=== PATIENT | male | born 1955 | race Hispanic/Latino ===

== ENCOUNTER 2017-06-07 07:26 | Emergency (ER) | payer MEDICAID, OTHER, SELFPAY ==
--- NOTE | 2017-06-07 07:45 | C.PDOC ---
History Of Present Illness Patient is a 61 year old male presents to Emergency Department for evaluation of left sided toothache, and facial swelling since yesterday. Otherwise, patient denies any fever, chills, nausea, vomiting, difficulty swallowing, or any other associated symptoms at this time. Time Seen by Provider: 06/07/17 07:31 History Per: Patient History/Exam Limitations: no limitations Onset/Duration Of Symptoms: Days (1) Current Symptoms Are (Timing): Still Present Recent travel outside of the [place]: No Additional History Per: Patient Past Medical History Reviewed: Historical Data, Nursing Documentation, Vital Signs Vital Signs: Last Vital Signs Temp 98.4 F 06/07/17 07:33 Pulse 101 H 06/07/17 07:33 Resp 18 06/07/17 07:33 BP 107/79 06/07/17 07:33 Pulse Ox 95 06/07/17 07:55 - Medical History PMH: HTN (no meds) - [facility] Procedures ALCOHOL DETOXIFICATION (04/18/13) Family History: States: Unknown Family Hx - Social History Hx Tobacco Use: No Hx Alcohol Use: No Hx Substance Use: No - Immunization History Hx Tetanus Toxoid Vaccination: No Hx Influenza Vaccination: No Hx Pneumococcal Vaccination: No Review Of Systems Except As Marked, All Systems Reviewed And Found Negative. Constitutional: Negative for: Fever, Chills ENT: Positive for: Mouth Pain (left side dental pain, and facial swelling). Negative for: Throat Pain Respiratory: Negative for: Shortness of Breath Gastrointestinal: Negative for: Nausea, Vomiting Physical Exam - Physical Exam Appears: Non-toxic, No Acute Distress Skin: Normal Color, Warm, Dry, No Rash Head: Atraumatic, Normacephalic, Swelling (mild facial edema over the left maxilla) Eye(s): bilateral: Normal Inspection Nose: Normal Oral Mucosa: Moist, No Drooling, No Trismus Tongue: Normal Appearing, No Swelling Lips: Normal Appearing, No Swelling Teeth: No Normal Dentition (poor dentition), Caries Gingiva: Normal Appearing, No Erythema, No Swelling, No Abscess Throat: Normal, No Erythema, No Exudate, No Drooling, Other (Uvula midline, normal phonation) Neck: Normal ROM, Supple Chest: Symmetrical Cardiovascular: Rhythm Regular Respiratory: No Accessory Muscle Use Extremity: Bilateral: Atraumatic, Normal ROM Neurological/Psych: Oriented x3, Normal Speech ED Course And Treatment O2 Sat by Pulse Oximetry: 95 (on RA) Pulse Ox Interpretation: Normal Disposition - Disposition Referrals: [facility] at [facility] [Outside] Disposition: HOME/ ROUTINE Disposition Time: 07:44 Condition: GOOD Additional Instructions: Please follow up with a dentist as soon as possible. Return to the ER for any worsening symptoms or if you are not improved in 48 hours. Prescriptions: Penicillin VK [Penicillin VK Tab] 500 mg PO Q6H #80 tab Instructions: Toothache (ED) Forms: General Discharge Instructions, [facility] (Djiboutian) - Clinical Impression Clinical Impression: Dental infection - Scribe Statement The provider has reviewed the documentation as recorded by the Scribe Alhaji Lee All medical record entries made by the Scribe were at my direction and personally dictated by me. I have reviewed the chart and agree that the record accurately reflects my personal performance of the history, physical exam, medical decision making, and the department course for this patient. I have also personally directed, reviewed, and agree with the discharge instructions and disposition.
[2017-06-07 07:47] VITALS: BP 107/79; PULSE 101; RESP 18; TEMP 98.4; O2SAT 95; BMI 26.6
== END 2017-06-07 07:57 | disposition home or self-care (01) ==
LOC: C.ER 07:26
DX: K04.7 Periapical abscess without sinus (principal)

== ENCOUNTER 2017-08-17 15:51 | Emergency (ER) | payer MEDICAID ==
[2017-08-17 15:51] VITALS: BMI 26.6
[2017-08-17 16:07] VITALS: BP 153/99; PULSE 78; RESP 18; TEMP 97.8; O2SAT 98
== END 2017-08-17 16:38 | disposition left against medical advice (07) ==
LOC: C.ER 15:51
DX: Z02.89 Encounter for other administrative examinations (principal); Z00.00 Encounter for general adult medical examination without abnormal findings

== ENCOUNTER 2017-08-19 06:26 | Emergency (ER) | payer MEDICAID ==
[2017-08-19 06:26] VITALS: BMI 26.6
[2017-08-19 06:34] VITALS: PULSE 74
--- NOTE | 2017-08-19 06:47 | C.PDOC ---
History Of Present Illness 61 y/o male with a hx of chronic alcohol abuse since age 16, comes in for detox from alcohol. Patient admits last use was today. Patient reports mild tremors. Denies SI, HI, or any other complaints. Time Seen by Provider: 08/19/17 06:50 Chief Complaint (Nursing): Substance Abuse History Per: Patient History/Exam Limitations: no limitations Onset/Duration Of Symptoms: Hrs Current Symptoms Are (Timing): Still Present Suicide/Self Injury Attempted (Context): None Modifying Factor(s): Alcohol Severity: Mild Associated Symptoms: denies: Suicidal Thoughts, Suicidal Plan Involuntary Hold By: None Recent travel outside of the [place]: No Additional History Per: Patient Past Medical History Reviewed: Historical Data, Nursing Documentation, Vital Signs Vital Signs: Last Vital Signs Temp 98.3 F 08/19/17 06:32 Pulse 74 08/19/17 06:32 Resp 16 08/19/17 06:32 BP 156/98 H 08/19/17 06:32 Pulse Ox 99 08/19/17 06:47 - Medical History PMH: HTN (no meds) Denies: Diabetes, Hepatitis, HIV, Seizures, Sexually Transmitted Disease - [facility] Procedures ALCOHOL DETOXIFICATION (04/18/13) Family History: States: Unknown Family Hx - Social History Hx Tobacco Use: No Hx Alcohol Use: No Hx Substance Use: No - Immunization History Hx Tetanus Toxoid Vaccination: No Hx Influenza Vaccination: No Hx Pneumococcal Vaccination: No Review Of Systems Except As Marked, All Systems Reviewed And Found Negative. Constitutional: Positive for: Other (Acute alcohol intoxication) Neurological: Positive for: Other (Tremors) Psych: Negative for: Suicidal ideation, Other (HI) Physical Exam - Physical Exam Appears: Non-toxic, No Acute Distress Skin: Warm, Dry Head: Atraumatic, Normacephalic Eye(s): bilateral: Normal Inspection Oral Mucosa: Moist Chest: Symmetrical Cardiovascular: Rhythm Regular, No Murmur Respiratory: Normal Breath Sounds, No Rales, No Rhonchi, No Wheezing Gastrointestinal/Abdominal: Soft, No Tenderness Neurological/Psych: Oriented x3, Other (No tremors or focal deficits) ED Course And Treatment O2 Sat by Pulse Oximetry: 99 (RA) Pulse Ox Interpretation: Normal Medical Decision Making Medical Decision Making: Plans: * [facility] Crisis was notified and will talk to patient. No detox beds available. Patient will be discharge and given a list of centers to be prescreened for detox. Disposition Counseled Patient/Family Regarding: Diagnosis - Disposition Referrals: [facility] at [facility] [Outside] Disposition Time: 06:46 Condition: STABLE Instructions: Alcohol Use Disorder (ED) Forms: [facility] (Stateless) - POA Present On Arrival: None - Clinical Impression Clinical Impression: Alcohol abuse - Scribe Statement The provider has reviewed the documentation as recorded by the Scribe Vlad wilburn All medical record entries made by the Abdirashidibe were at my direction and personally dictated by me. I have reviewed the chart and agree that the record accurately reflects my personal performance of the history, physical exam, medical decision making, and the department course for this patient. I have also personally directed, reviewed, and agree with the discharge instructions and disposition.
[2017-08-19 07:31] VITALS: RESP 18
[2017-08-19 07:47] VITALS: BP 144/91; TEMP 97.4; O2SAT 97
== END 2017-08-19 07:48 | disposition home or self-care (01) ==
LOC: C.ER 06:26
DX: F10.10 Alcohol abuse, uncomplicated (principal); Y90.9 Presence of alcohol in blood, level not specified

== ENCOUNTER 2017-08-27 19:18 | Inpatient (IN) | payer MEDICAID ==
[2017-08-27 19:18] VITALS: BMI 26.6
[2017-08-27 22:59] LABS: BASO # 0.1 K/uL (0.0-0.2); BASO % 1.3 % (0.0-2.0); EOS % 0.2 % (0.0-4.0); HEMATOCRIT 46.1 % (35.0-51.0); LYMPH # 0.5 K/uL (1.0-4.3); LYMPH % 10.2 % (20.0-40.0); MEAN CELL VOLUME 95.7 fL (80.0-94.0); MEAN CORPUSCULAR HEMOGLOBIN 32.3 pg (27.0-31.0); MEAN CORPUSCULAR HGB CONC 33.7 g/dL (33.0-37.0); MONO # 0.3 K/uL (0.0-0.8); MONO % 6.4 % (0.0-10.0); RED CELL DISTRIBUTION WIDTH 14.8 % (11.5-14.5)
[2017-08-27 23:02] LABS: RBC URINE 1 /hpf (0-3); URINE BACTERIA RARE (<OCC); URINE BILIRUBIN NEGATIVE (NEGATIVE); URINE BLOOD NEGATIVE (NEGATIVE); URINE COLOR Yellow (YELLOW); URINE GLUCOSE (UA) NORMAL (Normal); URINE KETONE NEGATIVE (NEGATIVE); URINE LEUKOCYTE ESTERASE NEG Leu/uL (Negative); URINE PROTEIN 1+ mg/dL (NEGATIVE); URINE UROBILINOGEN NORMAL mg/dL (0.2-1.0); WBC URINE 1 /hpf (0-5)
[2017-08-27 23:13] LABS: ALKALINE PHOSPHATASE 37 U/L (38-126); ALT/SGPT 58 U/L (21-72); AST/SGOT 67 U/L (17-59); BILIRUBIN,TOTAL 0.8 mg/dL (0.2-1.3); BLOOD UREA NITROGEN 9 mg/dL (9-20); CALCIUM 8.4 mg/dl (8.6-10.4); CARBON DIOXIDE 28 mmol/L (22-30); CHLORIDE 95 mmol/L (98-107); GFR AFRICAN-AMERICAN > 60; GLUCOSE,RANDOM 145 mg/dL (75-110); POTASSIUM 4.1 mmol/L (3.6-5.2); SODIUM 139 mmol/L (132-148); TOTAL PROTEIN 8.7 g/dL (6.3-8.3)
[2017-08-27 23:28] LABS: ALB/GLOB RATIO 1.2 (1.0-2.1)
[2017-08-27 23:38] LABS: ALCOHOL SERUM 386 mg/dl (0-10)
--- NOTE | 2017-08-28 03:13 | C.PDOC ---
History Of Present Illness 61 year old male presents to the ER as a prescreen for ETOH detox, last drink was 30 minutes [employer]. Denies physical complaints at this time. Time Seen by Provider: 08/27/17 23:06 Chief Complaint (Nursing): Substance Abuse History Per: Patient History/Exam Limitations: no limitations Onset/Duration Of Symptoms: Hrs Current Symptoms Are (Timing): Still Present Suicide/Self Injury Attempted (Context): None Modifying Factor(s): Alcohol Associated Symptoms: denies: Depression, Suicidal Thoughts, Suicidal Plan Involuntary Hold By: None Recent travel outside of the [place]: No Past Medical History Reviewed: Historical Data, Nursing Documentation, Vital Signs Vital Signs: Last Vital Signs Temp 97.3 F L 08/28/17 01:30 Pulse 83 08/28/17 01:30 Resp 18 08/28/17 01:30 BP 159/97 H 08/28/17 01:30 Pulse Ox 96 08/28/17 04:10 - Medical History PMH: HTN (no meds) Surgical History: No Surg Hx - [facility] Procedures ALCOHOL DETOXIFICATION (04/18/13) Family History: States: Unknown Family Hx - Social History Hx Tobacco Use: No Hx Alcohol Use: Yes Hx Substance Use: No - Immunization History Hx Tetanus Toxoid Vaccination: No Hx Influenza Vaccination: No Hx Pneumococcal Vaccination: No Review Of Systems Constitutional: Negative for: Fever, Chills Gastrointestinal: Negative for: Nausea, Vomiting, Diarrhea Physical Exam - Physical Exam Appears: Non-toxic, No Acute Distress Skin: Normal Color, Warm, Dry Head: Atraumatic, Normacephalic Eye(s): bilateral: Normal Inspection Oral Mucosa: Moist Chest: Symmetrical Cardiovascular: Rhythm Regular Respiratory: Normal Breath Sounds, No Rales, No Rhonchi, No Wheezing Neurological/Psych: Oriented x3, Normal Speech ED Course And Treatment - Laboratory Results Result Diagrams: 08/27/17 22:56 08/27/17 22:56 O2 Sat by Pulse Oximetry: 96 (Room air) Pulse Ox Interpretation: Normal Progress Note: Blood work and urinalysis ordered. Discussed with licensing worker Kari, patient's alcohol level was found to be 386 at 23:30 and will not be cleared until 07:00. Repeat alcohol is 231at 5:30. Pt is stable with no complaints. Pt is medically cleared for Detox Disposition Counseled Patient/Family Regarding: Diagnosis, Need For Followup - Disposition Disposition Time: 07:00 Condition: STABLE Forms: [facility] (Serbian) - Clinical Impression Clinical Impression: Alcohol abuse - Scribe Statement The provider has reviewed the documentation as recorded by the Scribe Maximus Arita All medical record entries made by the Scribe were at my direction and personally dictated by me. I have reviewed the chart and agree that the record accurately reflects my personal performance of the history, physical exam, medical decision making, and the department course for this patient. I have also personally directed, reviewed, and agree with the discharge instructions and disposition. Physician Patient Turnover Patient Signed Over To: Jemma Hernandez Handoff Comments: Pending crisis evaluation for admission
--- NOTE | 2017-08-28 10:06 | PCM.BM ---
<Chiquis Salgado - Last Filed: 08/28/17 10:05> Treatment Plan Problems - Problems identified on initial assessmt Alcohol use disorder Date Initiated: 08/28/17 Time Initiated: 10:00 Assessment reference: NA Status: Active Treatment assets and liabiliti Patient Assests: cooperative, insightful, motivated, self-reliant, ADL independent, negotiates basic needs Patient Liabilities: substance abuse - Milieu Protocol Maintain good personal hygiene: daily Encourage regular showers, daily Remind patient to perform daily oral care, daily Assist patient to perform ADL's, every shift Encourage regular showers, every shift Remind patient to perform daily oral care, every shift Assist patient to perform ADL's Maintain personal safety: daily Educate patient to report safety concerns to staff, daily Monitor environment for contraband/sharps, every shift Educate patient to report safety concerns to staff, every shift Monitor environment for contraband/sharps Medication safety: Monitor for expected outcome, potential side effects: daily, every shift, Assess barriers to learning: daily, every shift, Assess readiness for medication education: daily, every shift <Julien Sanches - Last Filed: 08/28/17 22:53> - Diagnosis (1) Alcohol use disorder, severe, dependence Status: Acute Interventions: 08/28/17 22:53 * Assess 7x/week regarding severity of withdrawal * Educate regarding risks, benefits, side effects and alternatives of medications * Use Motivational Interviewing for abstinence * Use CBT for relapse prevention * Medication management for withdrawal symptoms * Encourage medication assisted treatment *
[2017-08-28] MEDS: Multiple Vitamins Tab PO SCH (10:27)
--- NOTE | 2017-08-28 15:39 | PCM.PSYCH ---
Initial Psychiatric Evaluation - Initial Psychiatric Evaluation Type of Admission: Voluntary Legal Status: Capacity Chief Complaint (in patient's own words): "I'm not well" History of Present Illness and Precipitating Events: Pt is a 61 y/o single male with no children who lives with a friend. 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 Pt is here for alcohol detox. Pt states that he drinks 6/7 shots of vodka per day. He has been drinking alcohol for 45 years. The longest he has been sober during that time has been 7 months. He has a history of 1 previous detox visit, but no history of rehab attempts. He has been to AA in the past. Pt states that he he experiences tremors when he is not drinking alcohol but does not experiences seizures. Pt denies tobacco, marijuana, opiate, benzodiazepine or other use. Past MHX: denies Past Psychiatric HX: denies Family Abuse HX: Mother "alcoholic" Family Psychiatric HX: denies Current Medications: Active Medications Generic Name Dose Route Start Last Admin Trade Name Freq PRN Reason Stop Dose Admin Chlordiazepoxide 25 mg 08/28/17 12:00 08/28/17 11:08 Librium PO 09/01/17 11:59 25 mg Q6 RENETTA Administration Taper Chlordiazepoxide 25 mg 08/28/17 09:57 08/28/17 14:13 Librium PO 25 mg Q4H PRN Administration Alcohol Withdrawal Clonidine HCl 0.1 mg 08/28/17 10:17 08/28/17 14:12 Catapres PO 0.1 mg Q4H PRN Administration Symptoms of alcohol withdrawl Folic Acid 1 mg 08/28/17 10:00 08/28/17 10:27 Folic Acid PO Not Given DAILY [facility] Gabapentin 300 mg 08/28/17 18:00 Neurontin PO TID RENETTA Multivitamins 1 tab 08/28/17 10:00 08/28/17 10:27 Hexavitamin PO Not Given DAILY RENETTA Ondansetron HCl 4 mg 08/28/17 13:07 08/28/17 13:34 Zofran Odt PO 4 mg Q6 PRN Administration Nausea/Vomiting Thiamine HCl 100 mg 08/28/17 10:00 08/28/17 10:27 Vitamin B1 Tab PO Not Given DAILY RENETTA Trazodone HCl 100 mg 08/28/17 09:57 Desyrel PO HS PRN Insomnia Past Psychiatric History - Past Psychiatric History Previous Treatment History: None Pertinent Medical Hx (Current Medical&Sleep Prob, Allergies): Allergies Allergy/AdvReac Type Severity Reaction Status Date / Time No Known Allergies Allergy Verified 08/27/17 19:27 No Known Home Med 08/17/17 Review of Systems - Neurological Neurological: Tremor - Psychiatric Psychiatric: Abnormal Sleep Pattern, Anxiety, Difficulty Concentrating, Irritability. absent: Hallucinations, Homicidal Ideation, Suicidal Ideation Mental Status Examination - Personal Presentation Personal Presentation: Looks stated age - Affect Affect: Constricted - Motor Activity Motor Activity: Calm - Reliability in Providing Information Reliability in Providing Information: Good - Speech Speech: Organized - Mood Mood: Depressed - Formal Thought Process Formal Thought Process: No Impairment - Cognitive Functions Orientation: Person, Place, Situation, Time Attention/Concentration: Attentive Judgement: Intact, as evidence by: Insight regarding need for hospitalization Memory: Recent intact, as evidence by: Ability to recall events of the day, Remote intact, as evidenced by: Ability to recall historical events - Risk Risk: Seizure, Withdrawal, Diminished functioning - Strength & Assets Inventory Strength & Assets Inventory: Cooperative - Limitations Limitations: Other DSM 5 DX - DSM 5 DSM 5 Diagnosis: Alcohol withdrawal Alcohol use d/o-severe - Recommended/Plan of Treatment Treatment Recommendations and Plan of Treatment: [facility] detox Gabapentin As needed medications Attend groups and activities Supportive therapy and psychoeducation [place] for abstinence CBT for relapse prevention Encourage MAT Refer to rehab or IOP, and self-help groups Hydralazine and prn clonidine (and librium) for elevated BP 32 min Projected ELOS: 4-5 days Prognosis: Good with Treatment Discharge Plan and Discharge Criteria: No wdw sxs Refer to IOP
[2017-08-29] MEDS: Multiple Vitamins Tab PO SCH (10:31)
--- NOTE | 2017-08-29 14:09 | PCM.PYCHPN ---
Psychiatric Progress Note - Psychiatric Progress Note Patient seen today, length of contact: 18 min Patient Chief Complaint: "I'm alright" Problems Identified/Issues Discussed: The pt is seen, chart reviewed, case discussed with staff. The pt is compliant with medications and reports no side-effects. Symptoms are improving but needs more time to stabilize. Pt blood pressure is decreasing and he is reporting that he slept good Pt is not experiencing withdrawal symptoms Pt reports that his appetite is returning After care discussed, support and psychoeducation given. Medication Change: Yes (Librium Taper) Medical Record Reviewed: Yes Mental Status Examination - Cognitive Function Orientation: Person, Place, Situation, Time Memory: Intact Attention: WNL Concentration: WNL Association: WNL Fund of Knowledge: WNL - Mood Mood: Depressed - Affect Affect: Constricted - Speech Speech: Soft - Formal Thought Process Formal Thought Process: No Impairment - Suicidal Ideation Suicidal Ideation: No - Homicidal Ideation Homicidal Ideation: No Goal/Treatment Plan - Goal/Treatment Plan Need for Continued Stay: Discharge may exacerbated symptoms, Severe functional impairment Progress Toward Problem(s) and Goals/Treatment Plan: [facility] detox Gabapentin As needed medications Attend groups and activities Supportive therapy and psychoeducation [place] for abstinence CBT for relapse prevention Encourage MAT Refer to rehab or IOP, and self-help groups Follow up with patient on plan to attend AA meetings Discuss IOP options with pt
[2017-08-30] MEDS: Multiple Vitamins Tab PO SCH (09:23)
--- NOTE | 2017-08-30 14:20 | PCM.PYCHPN ---
Psychiatric Progress Note - Psychiatric Progress Note Patient seen today, length of contact: 18 min Patient Chief Complaint: "I'm good and I slept good" Problems Identified/Issues Discussed: The pt is seen, chart reviewed, case discussed with staff. The pt is compliant with medications and reports no side-effects. Symptoms are improving but needs more time to stabilize. Pt blood pressure is stable Pt is not experiencing withdrawal symptoms Pt is sepnding a lot of time sleeping in his room. He was encouraged to go out and talk to the staff and other Pts After care discussed, support and psychoeducation given. Medication Change: Yes (Librium Taper) Medical Record Reviewed: Yes Mental Status Examination - Cognitive Function Orientation: Person, Place, Situation, Time Memory: Intact Attention: WNL Concentration: WNL Association: WNL Fund of Knowledge: WNL - Mood Mood: Neutral - Affect Affect: Constricted - Speech Speech: Soft - Formal Thought Process Formal Thought Process: No Impairment - Suicidal Ideation Suicidal Ideation: No - Homicidal Ideation Homicidal Ideation: No Goal/Treatment Plan - Goal/Treatment Plan Need for Continued Stay: Discharge may exacerbated symptoms, Severe functional impairment Progress Toward Problem(s) and Goals/Treatment Plan: [facility] detox Gabapentin As needed medications Attend groups and activities Supportive therapy and psychoeducation [place] for abstinence CBT for relapse prevention Encourage MAT Refer to rehab or IOP, and self-help groups Pt plans on attending AA meetings in [place] after discharge
--- NOTE | 2017-08-31 07:27 | PCM.PYCHPN ---
Psychiatric Progress Note - Psychiatric Progress Note Patient seen today, length of contact: 18 min Patient Chief Complaint: I am feeling much better.' Medication Change: Yes (Librium Taper) Medical Record Reviewed: Yes Mental Status Examination - Cognitive Function Orientation: Person, Place, Situation, Time Memory: Intact Attention: WNL Concentration: WNL Association: WNL Fund of Knowledge: WNL - Mood Mood: Neutral - Affect Affect: Constricted - Speech Speech: Soft - Formal Thought Process Formal Thought Process: No Impairment - Suicidal Ideation Suicidal Ideation: No - Homicidal Ideation Homicidal Ideation: No Goal/Treatment Plan - Goal/Treatment Plan Need for Continued Stay: Discharge may exacerbated symptoms, Severe functional impairment Progress Toward Problem(s) and Goals/Treatment Plan: Alcohol withdrawal Alcohol use d/o-severe [facility] detox Gabapentin As needed medications Attend groups and activities Supportive therapy and psychoeducation [place] for abstinence CBT for relapse prevention Encourage MAT Refer to rehab or IOP, and self-help groups Hydralazine and prn clonidine (and librium) for elevated BP - Smoking Cessation Smoking Cessation Initiated: No
[2017-08-31] MEDS: Multiple Vitamins Tab PO SCH (11:26)
[2017-09-01 08:36] VITALS: BP 151/99; PULSE 74; RESP 20; TEMP 97.9; O2SAT 100
--- NOTE | 2017-09-01 09:09 | PCM.PYCHDC ---
Mental Status Examination - Mental Status Examination Orientation: Person, Place, Situation, Time Memory: Intact Mood: Neutral Affect: Constricted Speech: Soft Attention: WNL Concentration: WNL Association: WNL Fund of Knowledge: WNL Formal Thought Process: No Impairment Description of patient's judgement and insight: good, fair Psychotic Thoughts and Behaviors: denies any AVH Suicidal Ideation: No Current Homicidal Ideation?: No Discharge Summary - Discharge Note Reason for Hospitalization: Pt is a 61 y/o single male with no children who lives with a friend. 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 Pt is here for alcohol detox. Pt states that he drinks 6/7 shots of vodka per day. He has been drinking alcohol for 45 years. The longest he has been sober during that time has been 7 months. He has a history of 1 previous detox visit, but no history of rehab attempts. He has been to AA in the past. Pt states that he he experiences tremors when he is not drinking alcohol but does not experiences seizures. Pt denies tobacco, marijuana, opiate, benzodiazepine or other use. Consultations:: List each consultation separately and include: 1. Reason for request. 2. Findings. 3. Follow-up Summary of Hospital Course include:: 1. Description of specific treatment plan utilized for patients during their course of treatmen. 2. Summarize the time- course for resolution of acute symptoms and/or regressed behaviors. 3. Describe issues identified and worked on during hospitalization. 4. Describe medication utilized. 5. Describe medical problems identified and treated. 6. Reassessment of suicide risk - Final Diagnosis (DSM 5) Condition upon Discharge: STABLE DSM 5: Alcohol withdrawal Alcohol use d/o-severe Disposition: HOME/ ROUTINE Follow-up Treatment Plan: Alcohol withdrawal Alcohol use d/o-severe [facility] detox Gabapentin As needed medications Attend groups and activities Supportive therapy and psychoeducation [place] for abstinence CBT for relapse prevention Encourage MAT Refer to rehab or IOP, and self-help groups Hydralazine and prn clonidine (and librium) for elevated BP Prescriptions/Medication Reconciliation: Gabapentin [Neurontin] 300 mg PO BID 30 Days #60 cap traZODone [Desyrel] 100 mg PO HS #30 tab - Smoking Cessation Smoking Cessation Medication prescribed: No - Antipsychotic Medications Pt discharged on 2 or more routine antipsychotic medications: No
[2017-09-01] MEDS: Multiple Vitamins Tab PO SCH (09:14)
== END 2017-09-01 10:00 | disposition home or self-care (01) | DRG 751 ==
LOC: C.ER 19:18 → C.9E 08-28 09:07 → C.7D 08-28 09:34
PROVIDERS: ADMIT Psychiatry & Neurology Psychiatry; ATTEND Psychiatry & Neurology Psychiatry
PROC: HZ2ZZZZ Detoxification Services for Substance Abuse Treatment (ICD-10-PCS; principal; 2017-08-28)
PROC: HZ46ZZZ Group Counseling for Substance Abuse Treatment, Psychoeducation (ICD-10-PCS; 2017-08-28)
PROC: HZ59ZZZ Individual Psychotherapy for Substance Abuse Treatment, Supportive (ICD-10-PCS; 2017-08-28)
DX: F10.230 Alcohol dependence with withdrawal, uncomplicated (principal); I10 Essential (primary) hypertension

== ENCOUNTER 2017-11-22 16:34 | Emergency (ER) | payer MEDICAID ==
[2017-11-22 16:34] VITALS: BMI 27.2
[2017-11-22 16:47] VITALS: BP 106/75; PULSE 92; RESP 18; TEMP 97.9; O2SAT 99
== END 2017-11-22 17:10 | disposition left against medical advice (07) ==
LOC: C.ER 16:34
DX: Z02.89 Encounter for other administrative examinations (principal); S69.91XA Unspecified injury of right wrist, hand and finger(s), initial encounter; W01.0XXA Fall on same level from slipping, tripping and stumbling without subsequent striking against object, initial encounter

== ENCOUNTER 2018-03-07 11:08 | Emergency (ER) | payer MEDICAID ==
[2018-03-07 11:09] VITALS: BMI 25.9
[2018-03-07 11:13] VITALS: O2SAT 96
--- NOTE | 2018-03-07 12:11 | C.PDOC ---
History Of Present Illness 62-year-old male, presents to the emergency department with complaints of hand pain. Pt states he fell , injuring his right 5th digit. He believes he dislocated it. Patient did not come to hospital right away. States he attempted to come in, earlier this year, checked in but left because it was busy. He reports the finger keeps bothering him and he decided to come to ED for eval. Denies any new symptoms, numbness/weakness, fever or chills. Chief Complaint (Nursing): Finger,Hand,&Wrist History Per: Patient History/Exam Limitations: no limitations Current Symptoms Are (Timing): Still Present Past Medical History Reviewed: Historical Data, Nursing Documentation, Vital Signs Vital Signs: Last Vital Signs Temp 97.8 F 03/07/18 12:17 Pulse 81 03/07/18 12:17 Resp 16 03/07/18 12:17 BP 127/89 03/07/18 12:17 Pulse Ox 96 03/07/18 14:46 - Medical History PMH: HTN (no meds) Denies: Diabetes, Hepatitis, HIV, Chronic Kidney Disease, Seizures, Sexually Transmitted Disease Surgical History: Denies: Pacemaker - [facility] Procedures ALCOHOL DETOXIFICATION (04/18/13) DETOXIFICATION SERVICES FOR SUBSTANCE ABUSE TREATMENT (08/28/17) GROUP TEXTBOOK ASSOCIATE FOR SUBSTANCE ABUSE TREATMENT, PSYCHOEDUCATION (08/28/17) INDIV PSYCHOTHERAPY FOR SUBSTANCE ABUSE TREATMENT, SUPPORT (08/28/17) Family History: States: No Known Family Hx - Social History Hx Tobacco Use: No Hx Alcohol Use: Yes (4-5 DRINKS PER DAY) Hx Substance Use: Yes - Immunization History Hx Tetanus Toxoid Vaccination: No Hx Influenza Vaccination: No Hx Pneumococcal Vaccination: No Review Of Systems Constitutional: Negative for: Fever Gastrointestinal: Negative for: Nausea, Vomiting Skin: Negative for: Rash Neurological: Negative for: Weakness, Numbness Physical Exam - Physical Exam Appears: Non-toxic, No Acute Distress Skin: Normal Color, Warm, Dry, No Rash Nose: Normal Oral Mucosa: Moist Lips: Normal Appearing Neck: Normal ROM Chest: Symmetrical Respiratory: No Accessory Muscle Use (no acute respiratory distress) Extremity: Deformity, Other (Right hand: 5th digit is tender to palpation. Deformity noted to PIP joint. No crepitus.) Pulses: Left Radial: Normal, Right Radial: Normal Neurological/Psych: Oriented x3, Normal Speech ED Course And Treatment O2 Sat by Pulse Oximetry: 96 (RA) Pulse Ox Interpretation: Normal - Other Rad XR R HAND X-Ray: Viewed By Me, Read By Radiologist Interpretation: Accession No. : [id number]. Patient Name / ID : CAIN FIELD / [id number]. Exam Date : 03/07/2018 11:40:24 ( Approved ). Study Comment : Sex / Age : M / [id number]. Creator : Timur Guerrero MD. Dictator : Timur Guerrero MD. Computer Field Technician : Wet Press Tender : Timur Guerrero MD. Approver2 : Report Date : 03/07/2018 12:08:58. My Comment : . PROCEDURE: Right small finger radiographs. HISTORY: injured finger 7 mos ago, pain. COMPARISON: None. TECHNIQUE: AP radiograph of the right hand, as well as spot oblique and lateral images of small finger were obtained. FINDINGS: RIGHT SMALL FINGER: No acute fracture. Periarticular changes surrounding the 5th proximal interphalangeal joint. . JOINTS: Dorsal dislocation of the 5th digit at the level of the proximal interphalangeal joint. SOFT TISSUES: 5th digit soft tissue swelling. OTHER FINDINGS: None. IMPRESSION: Dorsal dislocation of the 5th digit at the level of the proximal interphalangeal joint with periarticular changes. Disposition - Disposition Referrals: Shiela Coleman MD [Staff Provider] - [facility] [Outside] Disposition: HOME/ ROUTINE Disposition Time: 12:09 Condition: STABLE Additional Instructions: Follow up with PMD within 1-2 days. Return to ED if feel worse. Instructions: Finger Dislocation (DC) Forms: [employer] (Guinean) - Clinical Impression Clinical Impression: Finger dislocation - Scribe Statement The provider has reviewed the documentation as recorded by the Scribe (Shari Ashby) All medical record entries made by the Scribe were at my direction and personally dictated by me. I have reviewed the chart and agree that the record accurately reflects my personal performance of the history, physical exam, medical decision making, and the department course for this patient. I have also personally directed, reviewed, and agree with the discharge instructions and disposition.
[2018-03-07 12:18] VITALS: BP 127/89; PULSE 81; RESP 16; TEMP 97.8
== END 2018-03-07 12:20 | disposition home or self-care (01) ==
LOC: C.ER 11:08
DX: S63.286A Dislocation of proximal interphalangeal joint of right little finger, initial encounter (principal); W19.XXXA Unspecified fall, initial encounter; Y92.9 Unspecified place or not applicable

== ENCOUNTER 2018-03-26 16:35 | Emergency (ER) | payer MEDICAID ==
[2018-03-26 16:35] VITALS: BMI 25.9
[2018-03-26 16:56] VITALS: RESP 20
--- NOTE | 2018-03-26 17:27 | C.PDOC ---
History Of Present Illness 62-year-old male presents to the ED for evaluation of right 5th finger deformity. Patient reports chronic dislocation of the finger for the past 6 months after he sustained a fall on black ice. Patient did not seek medical attention at the time. He denies recent injury/trauma, sensory changesm fever, open wounds/drainage. Time Seen by Provider: 03/26/18 16:41 Chief Complaint (Nursing): Finger,Hand,&Wrist History Per: Patient History/Exam Limitations: no limitations Onset/Duration Of Symptoms: Other (months ) Current Symptoms Are (Timing): Still Present Quality: "Pain" Severity: Mild Additional History Per: Patient Past Medical History Reviewed: Historical Data, Nursing Documentation, Vital Signs Vital Signs: Last Vital Signs Temp 98.7 F 03/26/18 17:50 Pulse 82 03/26/18 17:50 Resp 20 03/26/18 17:50 BP 146/98 H 03/26/18 17:50 Pulse Ox 97 03/26/18 22:33 - Medical History PMH: HTN (no meds) Surgical History: No Surg Hx - [facility] Procedures ALCOHOL DETOXIFICATION (04/18/13) DETOXIFICATION SERVICES FOR SUBSTANCE ABUSE TREATMENT (08/28/17) GROUP BASKET OPERATOR FOR SUBSTANCE ABUSE TREATMENT, PSYCHOEDUCATION (08/28/17) INDIV PSYCHOTHERAPY FOR SUBSTANCE ABUSE TREATMENT, SUPPORT (08/28/17) Family History: States: No Known Family Hx - Social History Hx Tobacco Use: No Hx Alcohol Use: Yes (4-5 DRINKS PER DAY) Hx Substance Use: Yes - Immunization History Hx Tetanus Toxoid Vaccination: No Hx Influenza Vaccination: No Hx Pneumococcal Vaccination: No Review Of Systems Constitutional: Negative for: Fever Musculoskeletal: Positive for: Other (right 5th finger dislocation ) Skin: Negative for: Rash Neurological: Negative for: Weakness, Numbness Physical Exam - Physical Exam Appears: Well, Non-toxic, No Acute Distress Skin: Normal Color, Warm, Dry, No Rash Eye(s): bilateral: Normal Inspection Cardiovascular: Rhythm Regular Respiratory: Normal Breath Sounds, No Rales, No Rhonchi, No Wheezing Extremity: No Normal ROM (limited at 5th digit , secondary to pain/deformity), Capillary Refill (< 2 sec all digits ), Deformity (chronic, to PIP of right 5th digit (chronic dislocation)) Pulses: Left Radial: Normal, Right Radial: Normal Neurological/Psych: Oriented x3, Normal Sensation ED Course And Treatment O2 Sat by Pulse Oximetry: 97 (on RA) Pulse Ox Interpretation: Normal - Other Rad right hand XR X-Ray: Interpreted by Me, Viewed By Me, Read By Radiologist Interpretation: PROCEDURE: Right small finger radiographs. HISTORY: chronic 5th finger injury. COMPARISON: None. TECHNIQUE: AP radiograph of the right hand, as well as spot oblique and lateral images of small finger were obtained. FINDINGS: RIGHT SMALL FINGER: There is no acute displaced fracture or bone destruction. There is an old fracture deformity in the 5th metacarpal. Bone mineralization is normal. JOINTS: There is chronic dorsal and lateral dislocation of the proximal interphalangeal joint of the 5th digit with surrounding soft tissue swelling. 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 SOFT TISSUES: Diffuse soft tissue swelling in the 5th digit. OTHER FINDINGS: None. IMPRESSION: Chronic dorsal an lateral dislocation of the proximal interphalangeal joint of the 5th digit and severe degenerative osteoarthrosis with surrounding soft tissue swelling. No acute fracture. Progress Note: Xray of right hand ordered and reviewed, shows chronic dislocation of right 5th digit. Patient instructed to follow up with hand surgeon/orthopedics within 1 week, and understands he should return to ED if he has any worsening/concerning symptoms. Disposition Counseled Patient/Family Regarding: Studies Performed, Diagnosis, Need For Followup - Disposition Referrals: Dain Lancaster MD [Staff Provider] - [facility] [place] [Outside] Disposition: HOME/ ROUTINE Disposition Time: 17:30 Condition: STABLE Additional Instructions: YOU HAVE A CHRONIC FINGER DISLOCATION FOLLOW UP WITH HAND SURGEON OR ORTHOPEDICS WITHIN 1 WEEK RETURN TO ER IF YOU HAVE ANY CONCERNING SYMPTOMS Forms: [employer] (Libyan) Print Language: CITIZEN OF [place] - Clinical Impression Clinical Impression: Dislocation, finger - Scribe Statement The provider has reviewed the documentation as recorded by the Scribe (Zahra Lee) Provider Attestation: All medical record entries made by the Scribe were at my direction and personally dictated by me. I have reviewed the chart and agree that the record accurately reflects my personal performance of the history, physical exam, medical decision making, and the department course for this patient. I have also personally directed, reviewed, and agree with the discharge instructions and disposition.
--- NOTE | 2018-03-26 17:41 | RAD ---
PROCEDURE: Right small finger radiographs. HISTORY: chronic 5th finger injury COMPARISON: None. TECHNIQUE: AP radiograph of the right hand, as well as spot oblique and lateral images of small finger were obtained. FINDINGS: RIGHT SMALL FINGER: There is no acute displaced fracture or bone destruction. There is an old fracture deformity in the 5th metacarpal. Bone mineralization is normal. JOINTS: There is chronic dorsal and lateral dislocation of the proximal interphalangeal joint of the 5th digit with surrounding soft tissue swelling. 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 SOFT TISSUES: Diffuse soft tissue swelling in the 5th digit. OTHER FINDINGS: None. IMPRESSION: Chronic dorsal an lateral dislocation of the proximal interphalangeal joint of the 5th digit and severe degenerative osteoarthrosis with surrounding soft tissue swelling. No acute fracture.
[2018-03-26 17:51] VITALS: BP 146/98; PULSE 82; TEMP 98.7
[2018-03-26 18:44] VITALS: O2SAT 97
== END 2018-03-26 17:54 | disposition home or self-care (01) ==
LOC: C.ER 16:35
DX: M24.444 Recurrent dislocation, right finger (principal)

== ENCOUNTER 2018-06-03 07:17 | Emergency (ER) | payer MEDICAID ==
[2018-06-03 07:18] VITALS: BMI 25.9
[2018-06-03 07:23] VITALS: RESP 18
--- NOTE | 2018-06-03 07:44 | C.PDOC ---
History Of Present Illness 62 y/o male with history of HTN presents to ED with c/o rib pain and head pain for 3 days after he fell backwards. Patient states he was getting ice cream 3 days ago, was walking backwards and fell. He said at the time he felt dizzy "from the heat" but since has not felt dizzy or lightheaded. Notes he has pain to the back of his scalp where he hit his head and to the right back ribs. Repeated denies drinking alcohol today or the other day. Patient denies loc, chest pain, sob, abdominal pain, loc, headache, bowel/bladder incontinence, nausea, vomiting, dysuria, vision changes or any other complaints at this time. Pt admits to being non compliant with his HTN medication , notes he ran out "months ago". Time Seen by Provider: 06/03/18 07:36 Chief Complaint (Nursing): Back Pain History Per: Patient History/Exam Limitations: no limitations Onset/Duration Of Symptoms: Days Current Symptoms Are (Timing): Still Present Quality Of Discomfort: "Pain" Past Medical History Reviewed: Historical Data, Nursing Documentation, Vital Signs Vital Signs: Last Vital Signs Temp 98.0 F 06/03/18 09:59 Pulse 88 06/03/18 09:59 Resp 18 06/03/18 10:21 BP 168/101 H 06/03/18 09:59 Pulse Ox 95 06/03/18 12:13 - Medical History PMH: HTN (no meds) Surgical History: No Surg Hx - [facility] Procedures ALCOHOL DETOXIFICATION (04/18/13) DETOXIFICATION SERVICES FOR SUBSTANCE ABUSE TREATMENT (08/28/17) GROUP PLANT SCIENTIST FOR SUBSTANCE ABUSE TREATMENT, PSYCHOEDUCATION (08/28/17) INDIV PSYCHOTHERAPY FOR SUBSTANCE ABUSE TREATMENT, SUPPORT (08/28/17) Family History: States: No Known Family Hx - Social History Hx Tobacco Use: No Hx Alcohol Use: Yes (4-5 DRINKS PER DAY) Hx Substance Use: Yes - Immunization History Hx Tetanus Toxoid Vaccination: No Hx Influenza Vaccination: No Hx Pneumococcal Vaccination: No Review Of Systems Except As Marked, All Systems Reviewed And Found Negative. Constitutional: Negative for: Fever, Chills Gastrointestinal: Negative for: Nausea, Vomiting Genitourinary: Negative for: Dysuria, Incontinence Musculoskeletal: Positive for: Back Pain, Other (rib pain) Neurological: Positive for: Headache. Negative for: Weakness, Numbness Physical Exam - Physical Exam Appears: Non-toxic, No Acute Distress, Other (ETOH on breath) Skin: Warm, Dry, No Rash, Ecchymosis (posterior scalp) Head: Normacephalic, Tenderness ( posterior scalp), No Abrasion, No Laceration Eye(s): bilateral: Normal Inspection, PERRL, EOMI Ear(s): Bilateral: Normal Nose: Normal Oral Mucosa: Moist Neck: Normal ROM, No Midline Cervical Tenderness, No Paracervical Tenderness, Supple Chest: Symmetrical, Tenderness (right posterior ribs), Ecchymosis (right posterior ribs) Cardiovascular: Rhythm Regular Respiratory: Normal Breath Sounds, No Rales, No Rhonchi, No Wheezing Gastrointestinal/Abdominal: Soft, No Tenderness, No Guarding, No Rebound Extremity: Normal ROM Neurological/Psych: Oriented x3, Normal Speech, Normal Cognition, Normal Motor, Normal Sensation ED Course And Treatment - Laboratory Results Result Diagrams: 06/03/18 08:22 06/03/18 08:22 ECG: Interpreted By Me, Viewed By Me ECG Rhythm: Sinus Rhythm Rate From EC (BPM) O2 Sat by Pulse Oximetry: 95 (RA) Pulse Ox Interpretation: Normal - Other Rad Right rib/chest X-Ray: Viewed By Me, Read By Radiologist Interpretation: PROCEDURE: Radiographs of the Chest and Right Ribs. HISTORY: trauma. COMPARISON: None available. TECHNIQUE: Frontal radiograph of the chest and multiple oblique radiographs of the right ribs were obtained. FINDINGS: RIGHT RIBS: There is minimal increased density minimal bulbous deformity faint lucency over the right 6th lateral rib compatible with a probably subacute fracture. No displaced fracture lines noted. Equivocal changes regarding the right lateral 9th rib also noted. Incidentally noted are old healed rib fracture deformities of anterior left 6th and 7th ribs as well. LUNGS: Clear. PLEURA: No pneumothorax or pleural fluid. CARDIOVASCULAR: Normal sized heart. No pulmonary vascular congestion. OTHER FINDINGS: Thoracic spondylosis. IMPRESSION: There is minimal increased density minimal bulbous deformity faint lucency over the right 6th lateral rib compatible with a probably subacute fracture. Findings regarding the lateral right 9th rib are indeterminate. No displaced fracture lines noted. Incidentally noted are old healed rib fracture deformities of anterior left 6th and 7th ribs as well. Clinical correlation with history in terms of trauma date and point of maximum tenderness recommended. Comments: Study marked for PA review . - CT Scan/US CT head w/o Contrast Other Rad Studies (CT/US): Read By Radiologist, Radiology Report Reviewed CT/US Interpretation: PROCEDURE: CT HEAD WITHOUT CONTRAST. HISTORY: Injury. Headache. COMPARISON: None available. TECHNIQUE: Axial computed tomography images were obtained through the head/brain without intravenous contrast. Radiation dose: Total exam DLP = 879 mGy-cm. This CT exam was performed using one or more of the following dose reduction techniques: Automated exposure control, adjustment of the mA and/or kV according to patient size, and/or use of iterative reconstruction technique. FINDINGS: HEMORRHAGE: No intracranial hemorrhage. BRAIN: No mass effect or edema. Scattered focal lucencies in the subcortical and periventricular white matter suggestive for chronic microvascular ischemic change. Punctate bilateral basal ganglia lacunar infarcts. VENTRICLES: Unremarkable. No hydrocephalus. CALVARIUM: Unremarkable. PARANASAL SINUSES: Unremarkable as visualized. No significant inflammatory changes. MASTOID AIR CELLS: Unremarkable as visualized. No inflammatory changes. OTHER FINDINGS: Intracranial arterial calcifications. IMPRESSION: Chronic microvascular ischemic changes. No acute intracranial abnormality. If symptoms persist, consider correlation with MRI. Progress Note: CT head w/o contrast, Blood work, Rib/chest Xray ordered. Toradol administered. On reassessment, patient is resting comfortably, with improvement of back pain. DEnies chest pain or sob. Patient remains afebrile, with no bony tenderness, extremity numbness or weakness, or abdominal pain. Patient is ambulatory in the emergency department with no signs of discomfort. Pt was offered detox and declined. Discussed elevated BP, pt is asymptomatic. Called his pharmacy and rx given to restart HTN medication. Discussed risks of untreated htn. Steady gait. Pt requesting to be discharged. Copies of XR given. Patient was advised to follow up with physician/clinic in 1-2 days. Disposition - Disposition Referrals: Da Lees MD [Staff Provider] - Disposition: HOME/ ROUTINE Disposition Time: 10:13 Condition: STABLE Additional Instructions: Follow up with your doctor in 1-2 days. Return to ER If symptoms persist or worsen. Prescriptions: Losartan [Cozaar] 1 tab PO DAILY #14 tab Instructions: Rib Fracture (DC), Alcohol Abuse and Alcoholism (DC) Forms: [employer] (Maori) - Clinical Impression Clinical Impression: Alcohol abuse, HTN (hypertension), Rib fracture, Head contusion - PA / TELE RN / Resident Statement MD/DO has reviewed & agrees with the documentation as recorded. - Scribe Statement The provider has reviewed the documentation as recorded by the Bouchra Soto All medical record entries made by the Bouchra were at my direction and personally dictated by me. I have reviewed the chart and agree that the record accurately reflects my personal performance of the history, physical exam, medical decision making, and the department course for this patient. I have also personally directed, reviewed, and agree with the discharge instructions and disposition.
[2018-06-03 08:26] LABS: BASO # 0.1 K/uL (0.0-0.2); BASO % 1.3 % (0.0-2.0); EOS # 0.1 K/uL (0.0-0.7); EOS % 1.6 % (0.0-4.0); HEMOGLOBIN 14.2 g/dL (12.0-18.0); LYMPH % 17.6 % (20.0-40.0); MEAN CORPUSCULAR HEMOGLOBIN 33.8 pg (27.0-31.0); MEAN CORPUSCULAR HGB CONC 35.2 g/dL (33.0-37.0); MEAN PLATELET VOLUME 7.6 fL (7.2-11.7); MONO # 0.5 K/uL (0.0-0.8); MONO % 8.7 % (0.0-10.0); NEUT # 3.9 K/uL (1.8-7.0); NEUT % 70.8 % (50.0-75.0); RBC 4.19 Mil/uL (4.40-5.90); RED CELL DISTRIBUTION WIDTH 13.1 % (11.5-14.5); WHITE BLOOD COUNT 5.5 K/uL (4.8-10.8)
[2018-06-03 08:39] LABS: ALT/SGPT 30 U/L (21-72); AST/SGOT 41 U/L (17-59); BLOOD UREA NITROGEN 18 mg/dL (9-20); CALCIUM 9.2 mg/dl (8.6-10.4); GFR NON-AFRICAN AMERICAN > 60
[2018-06-03 08:41] LABS: ALBUMIN 4.9 g/dL (3.5-5.0)
--- NOTE | 2018-06-03 08:47 | CT ---
Date of service: 06/03/2018 PROCEDURE: CT HEAD WITHOUT CONTRAST. HISTORY: Injury. Headache. COMPARISON: None available. TECHNIQUE: Axial computed tomography images were obtained through the head/brain without intravenous contrast. Radiation dose: Total exam DLP = 879 mGy-cm. This CT exam was performed using one or more of the following dose reduction techniques: Automated exposure control, adjustment of the mA and/or kV according to patient size, and/or use of iterative reconstruction technique. FINDINGS: HEMORRHAGE: No intracranial hemorrhage. BRAIN: No mass effect or edema. Scattered focal lucencies in the subcortical and periventricular white matter suggestive for chronic microvascular ischemic change. Punctate bilateral basal ganglia lacunar infarcts. VENTRICLES: Unremarkable. No hydrocephalus. CALVARIUM: Unremarkable. PARANASAL SINUSES: Unremarkable as visualized. No significant inflammatory changes. MASTOID AIR CELLS: Unremarkable as visualized. No inflammatory changes. OTHER FINDINGS: Intracranial arterial calcifications. IMPRESSION: Chronic microvascular ischemic changes. No acute intracranial abnormality. If symptoms persist, consider correlation with MRI.
[2018-06-03 08:49] LABS: CK-MB 1.64 ng/mL (0.0-3.38)
--- NOTE | 2018-06-03 08:50 | RAD ---
Date of service: 06/03/2018 PROCEDURE: Radiographs of the Chest and Right Ribs. HISTORY: trauma COMPARISON: None available. TECHNIQUE: Frontal radiograph of the chest and multiple oblique radiographs of the right ribs were obtained. FINDINGS: RIGHT RIBS: There is minimal increased density minimal bulbous deformity faint lucency over the right 6th lateral rib compatible with a probably subacute fracture. No displaced fracture lines noted. Equivocal changes regarding the right lateral 9th rib also noted. Incidentally noted are old healed rib fracture deformities of anterior left 6th and 7th ribs as well LUNGS: Clear. PLEURA: No pneumothorax or pleural fluid. CARDIOVASCULAR: Normal sized heart. No pulmonary vascular congestion. OTHER FINDINGS: Thoracic spondylosis. IMPRESSION: There is minimal increased density minimal bulbous deformity faint lucency over the right 6th lateral rib compatible with a probably subacute fracture. Findings regarding the lateral right 9th rib are indeterminate. No displaced fracture lines noted. Incidentally noted are old healed rib fracture deformities of anterior left 6th and 7th ribs as well Clinical correlation with history in terms of trauma date and point of maximum tenderness recommended Comments: Study marked for PA review .
[2018-06-03 08:53] LABS: ALB/GLOB RATIO 1.5 (1.0-2.1)
[2018-06-03 10:00] VITALS: BP 168/101; PULSE 88; TEMP 98
[2018-06-03 10:15] VITALS: O2SAT 95
--- NOTE | 2018-06-04 16:48 | CARD ---
APPROVED REPORT Date of service: 06/03/2018 EKG Measurement Heart [id number] <Conclusion> Normal sinus rhythm Normal Electrocardiogram
== END 2018-06-03 10:24 | disposition home or self-care (01) ==
LOC: C.ER 07:17
DX: S00.93XA Contusion of unspecified part of head, initial encounter (principal); S22.31XA Fracture of one rib, right side, initial encounter for closed fracture; W19.XXXA Unspecified fall, initial encounter; F10.10 Alcohol abuse, uncomplicated; I10 Essential (primary) hypertension
CPT/HCPCS: 70450; 71101; 80053; 80320; 82550; 82553; 84484; 85025; 93005; 96374; 99284; J1885

== ENCOUNTER 2018-07-15 06:40 | Inpatient (IN) | payer MEDICAID ==
[2018-07-15 06:52] VITALS: BMI 28.0
--- NOTE | 2018-07-15 06:54 | C.PDOC ---
Addendum entered and electronically signed by Meron Doan DO 07/15/18 07:43: Addendum Addendum: 07/15/18 07:42 Patient currently AAOx3, in no pain/distress. He states he has been having some weakness in his B/L legs for the past approx 10 days, denies weakness in arms, sensory changes, facial droop, visual changesm slurred speech, chest pain, palpitations, SOB. He states his last alcoholic drink was aprox 2 days ago, denies prior seizures. He also denies h/o atrial fibrillation. Currently going to CT head. Original Note: History Of Present Illness patient presents with a possible alcoholic withdrawal seizure. his friend called 911 after finding the patient on the floor. Pt has stopped drinking about 2 days ago. Denies any suicidal or homicidal ideation. States he normally drinks everyday. Does not recall how he got to the hospital. Denies any LOC. Not incontinent Time Seen by Provider: 07/15/18 06:50 Chief Complaint (Nursing): Seizure History Per: EMS History/Exam Limitations: no limitations Recent Seizure Activity Began: Unknown Length Of Seizures (Duration): Unknown Quality Of Seizure: Generalized Precipitating Factor(s): Recent Alcohol Ingestion Associated Symptoms: Bit Tongue Post-ictal Period: Yes (minimal) Severity: Moderate Pain Scale Rating Of: 5 Recent travel outside of the [place]: No Additional History Per: EMS Past Medical History Reviewed: Historical Data, Nursing Documentation, Vital Signs - Medical History PMH: HTN (no meds) Denies: Diabetes, Hepatitis, HIV, Chronic Kidney Disease, Seizures, Sexually Transmitted Disease Surgical History: Denies: Pacemaker - [facility] ALCOHOL DETOXIFICATION (04/18/13) DETOXIFICATION SERVICES FOR SUBSTANCE ABUSE TREATMENT (08/28/17) GROUP ELECTRICAL TESTER FOR SUBSTANCE ABUSE TREATMENT, PSYCHOEDUCATION (08/28/17) INDIV PSYCHOTHERAPY FOR SUBSTANCE ABUSE TREATMENT, SUPPORT (08/28/17) Family History: States: No Known Family Hx - Social History Hx Tobacco Use: No Hx Alcohol Use: Yes (4-5 DRINKS PER DAY) Hx Substance Use: Yes - Immunization History Hx Tetanus Toxoid Vaccination: No Hx Influenza Vaccination: No Hx Pneumococcal Vaccination: No Review Of Systems Review Of Systems: ROS cannot be obtained secondary to pt's inabilty to answer questions. Physical Exam - Physical Exam Appears: In Acute Distress Skin: Warm, Dry, Diaphoretic Head: Normacephalic Eye(s): bilateral: Normal Inspection Oral Mucosa: Moist Lips: Abrasion Neck: Supple Chest: Symmetrical Cardiovascular: Rhythm Irregular Respiratory: No Rales, No Rhonchi, No Wheezing Gastrointestinal/Abdominal: Soft, No Tenderness, No Distention Back: Normal Inspection Extremity: Normal ROM, Other (ecchimosis, left arm) Extremity: Bilateral: Atraumatic, Normal Color And Temperature, Normal ROM DTR: Ankle (R): 0, Ankle (L): 0 Neurological/Psych: Oriented x3, Normal Speech, Normal Cognition Gait: Unable To Assess ED Course And Treatment ECG: Interpreted By Me, Viewed By Me ECG Rhythm: Atrial Fibrillation (163), Nonspecific Changes Pulse Ox Interpretation: Normal - Radiology CXR: Interpreted by Me, Viewed By Me Disposition Counseled Patient/Family Regarding: Studies Performed, Diagnosis - Disposition Disposition Time: 06:51 Condition: FAIR Forms: [facility] (Greenlandic) - Clinical Impression Clinical Impression: Seizure, Alcohol abuse, Uncontrolled atrial fibrillation Physician Patient Turnover Patient Signed Over To: Meron Doan Handoff Comments: pending labs, re-eval and disposition
[2018-07-15] MEDS ORDERED: Sodium Chloride 0.9% 1,000 ML IV ONE (06:56)
[2018-07-15 07:07] LABS: BASO % 0.6 % (0.0-2.0); HEMOGLOBIN 15.5 g/dL (12.0-18.0); LYMPH # 0.6 K/uL (1.0-4.3); LYMPH % 10.2 % (20.0-40.0); MEAN CELL VOLUME 96.8 fL (80.0-94.0); MEAN CORPUSCULAR HEMOGLOBIN 33.8 pg (27.0-31.0); MEAN CORPUSCULAR HGB CONC 34.9 g/dL (33.0-37.0); MEAN PLATELET VOLUME 8.2 fL (7.2-11.7); MONO # 0.6 K/uL (0.0-0.8); MONO % 9.5 % (0.0-10.0); NEUT # 4.7 K/uL (1.8-7.0); NEUT % 79.7 % (50.0-75.0); NRBC % 0.1 % (0.0-2.0); RBC 4.6 Mil/uL (4.40-5.90); RED CELL DISTRIBUTION WIDTH 12.8 % (11.5-14.5)
[2018-07-15 07:22] LABS: ALB/GLOB RATIO 1.4 (1.0-2.1); ALBUMIN 5.5 g/dL (3.5-5.0); ALT/SGPT 26 U/L (21-72); AST/SGOT 56 U/L (17-59); BLOOD UREA NITROGEN 17 mg/dL (9-20); CALCIUM 9.8 mg/dl (8.6-10.4); GFR NON-AFRICAN AMERICAN > 60
[2018-07-15 07:38] LABS: VENOUS BLOOD GAS BASE EXCESS -1.3 mmol/L (0.0-2.0); VENOUS BLOOD GAS PCO2 35 mmHg (40-60); VENOUS BLOOD GAS PO2 63 mm/Hg (30-55); VENOUS BLOOD PH 7.42 (7.32-7.43)
[2018-07-15 08:07] LABS: SQUAMOUS EPITHIAL < 1 /hpf (0-5); URINE BACTERIA RARE (<OCC); URINE BILIRUBIN NEGATIVE (NEGATIVE); URINE BLOOD 1+ (NEGATIVE); URINE CLARITY Clear (Clear); URINE COLOR Yellow (YELLOW); URINE GLUCOSE (UA) 3+ mg/dL (Normal); URINE LEUKOCYTE ESTERASE NEG Leu/uL (Negative); URINE PROTEIN 3+ mg/dL (NEGATIVE); URINE UROBILINOGEN NORMAL mg/dL (0.2-1.0)
[2018-07-15 08:11] LABS: BARBITURATES, UR NEGATIVE (NEGATIVE); BENZODIAZEPINES, UR NEGATIVE (NEGATIVE); OPIATES, UR NEGATIVE (NEGATIVE); PHENCYCLIDINE, UR NEGATIVE (NEGATIVE)
--- NOTE | 2018-07-15 08:13 | CT ---
Date of service: 07/15/2018 PROCEDURE: CT HEAD WITHOUT CONTRAST. HISTORY: seizure COMPARISON: 06/03/2018 TECHNIQUE: Axial computed tomography images were obtained through the head/brain without intravenous contrast. Radiation dose: Total exam DLP = 1169 mGy-cm. This CT exam was performed using one or more of the following dose reduction techniques: Automated exposure control, adjustment of the mA and/or kV according to patient size, and/or use of iterative reconstruction technique. FINDINGS: HEMORRHAGE: No intracranial hemorrhage. BRAIN: No mass effect or edema. Moderate cerebral atrophy [id number]. The few tiny bilateral basal ganglionic lacunar infarcts and the periventricular/subcortical mild chronic microvascular ischemic changes are similar appearing. VENTRICLES: Unremarkable. No hydrocephalus. CALVARIUM: Unremarkable. PARANASAL SINUSES: Greater visualization of left maxillary sinus included this exam here left maxillary sinus mild mucosal thickening noted. No gross air-fluid levels appreciated. MASTOID AIR CELLS: Unremarkable as visualized. No inflammatory changes. OTHER FINDINGS: None. IMPRESSION: No interval hemorrhage or mass effect. Cerebral atrophy and chronic microvascular ischemic [id number] also.
[2018-07-15] MEDS ORDERED: Enoxaparin 40 mg Syringe SC STA (08:31)
[2018-07-15] MEDS ORDERED: Enoxaparin 100 mg Syringe ONE (08:52)
--- NOTE | 2018-07-15 09:59 | RAD ---
Date of service: 07/15/2018 PROCEDURE: CHEST RADIOGRAPH, 1 VIEW HISTORY: Seizure COMPARISON: 06/03/2018 FINDINGS: LUNGS: Mild venous congestion. Right hilar prominence. PLEURA: No pneumothorax or pleural fluid seen. CARDIOVASCULAR: Tortuous aorta. Mild cardiomegaly. OSSEOUS STRUCTURES: No significant abnormalities. Chronic rib deformities. VISUALIZED UPPER ABDOMEN: Normal. OTHER FINDINGS: None. IMPRESSION: Mild venous congestion. Right hilar prominence.
[2018-07-15 10:24] LABS: VENOUS BLOOD GAS BASE EXCESS 3.4 mmol/L (0.0-2.0); VENOUS BLOOD GAS PCO2 50 mmHg (40-60); VENOUS BLOOD GAS PO2 29 mm/Hg (30-55); VENOUS BLOOD PH 7.38 (7.32-7.43)
--- NOTE | 2018-07-15 16:32 | RAD ---
Date of service: 07/15/2018 PROCEDURE: Cervical Spine Radiographs. HISTORY: Pain. COMPARISON: None. FINDINGS: BONES: Vertebral bodies maintained in height. Technically limited examination. Normal alignment maintained. Atlantoaxial articulation suboptimally evaluated. DISC SPACES: Narrowed C5-6 and C6-7 disc spaces consistent with degenerative disc disease. Remaining disc spaces maintained in height. SOFT TISSUES: Normal. No prevertebral soft tissue swelling. OTHER FINDINGS: None. IMPRESSION: Degenerative disc disease C5-6 and C6-7.
--- NOTE | 2018-07-15 16:33 | RAD ---
Date of service: 07/15/2018 HISTORY: LEG WEAKNESS COMPARISON: No prior. FINDINGS: BONES: Alignment maintained. No fracture. DISC SPACES: Normal. SOFT TISSUES: Normal. OTHER FINDINGS: None. IMPRESSION: Normal radiographs of the thoracic spine.
--- NOTE | 2018-07-15 16:34 | RAD ---
Date of service: 07/15/2018 PROCEDURE: Radiographs of the Lumbar Spine. HISTORY: LEG WEAKNESS COMPARISON: No prior. FINDINGS: BONES: Normal alignment. No listhesis. No fracture. DISC SPACES: Unremarkable. OTHER FINDINGS: None. IMPRESSION: Unremarkable radiographs of the lumbar spine.
--- NOTE | 2018-07-15 16:43 | CP.PCM.HP ---
Past Patient History - Past Medical History & Family History Past Medical History?: Yes - Past Social History Smoking Status: Never Smoked - CARDIAC Hx Hypertension: Yes (no meds) Hx Pacemaker: No - PULMONARY Hx Respiratory Disorders: No Hx Tuberculosis: No - NEUROLOGICAL Hx Seizures: No - HEENT Hx HEENT Problems: No - RENAL Hx Chronic Kidney Disease: No - ENDOCRINE/METABOLIC Hx Endocrine Disorders: No - HEMATOLOGICAL/ONCOLOGICAL Hx Human Immunodeficiency Virus (HIV): No - INTEGUMENTARY Hx Dermatological Problems: No - MUSCULOSKELETAL/RHEUMATOLOGICAL Hx Falls: (pt denies fall history) - GASTROINTESTINAL Hx Gastrointestinal Disorders: No - GENITOURINARY/GYNECOLOGICAL Hx Sexually Transmitted Disorders: No - PSYCHIATRIC Hx Substance Use: Yes - SURGICAL HISTORY Hx Surgeries: Yes Hx Herniorrhaphy: Yes (Inguinal hernia) - ANESTHESIA Hx Anesthesia: Yes Hx Anesthesia Reactions: No Hx Malignant Hyperthermia: No Meds Allergies/Adverse Reactions: Allergies Allergy/AdvReac Type Severity Reaction Status Date / Time No Known Allergies Allergy Verified 07/15/18 06:55 Physical Exam - Constitutional Appears: Well - Head Exam Head Exam: ATRAUMATIC, NORMAL INSPECTION, NORMOCEPHALIC - Eye Exam Eye Exam: EOMI, Normal appearance, PERRL Pupil Exam: NORMAL ACCOMODATION, PERRL - ENT Exam ENT Exam: Mucous Membranes Moist, Normal Exam - Neck Exam Neck exam: Positive for: Normal Inspection - Respiratory Exam Respiratory Exam: Decreased Breath Sounds - Cardiovascular Exam Cardiovascular Exam: REGULAR RHYTHM, +S1, +S2 - GI/Abdominal Exam GI & Abdominal Exam: Diminished Bowel Sounds, Soft - Rectal Exam Rectal Exam: Deferred Results - Vital Signs Recent Vital Signs: Last Vital Signs Temp 98.4 F 07/15/18 16:41 Pulse 84 07/15/18 16:41 Resp 20 07/15/18 16:41 BP 160/103 H 07/15/18 16:41 Pulse Ox 98 07/15/18 16:41 - Labs Result Diagrams: 07/15/18 07:04 07/15/18 07:04 Labs: Laboratory Results - last 24 hr 07/15/18 07/15/18 07/15/18 06:47 07:04 07:04 WBC 6.0 RBC 4.60 Hgb 15.5 Hct 44.5 MCV 96.8 H MCH 33.8 H MCHC 34.9 RDW 12.8 Plt Count 213 MPV 8.2 Neut % (Auto) 79.7 H Lymph % (Auto) 10.2 L [place] % (Auto) 9.5 Eos % (Auto) 0.0 Baso % (Auto) 0.6 Neut # (Auto) 4.7 Lymph # (Auto) 0.6 L [place] # (Auto) 0.6 Eos # (Auto) 0.0 Baso # (Auto) 0.0 pO2 VBG pH VBG pCO2 VBG HCO3 VBG Total CO2 VBG O2 Sat (Calc) VBG Base Excess VBG Potassium Glucose Lactate Crit Value Called To Crit Value Called By Crit Value Read Back Blood Gas Notified Time Sodium 137 Potassium 4.0 Chloride 94 L Carbon Dioxide 20 L Anion Gap 27 H BUN 17 Creatinine 0.9 Est GFR ( Amer) > 60 Est GFR (Non-Af Amer) > 60 POC Glucose (mg/dL) 181 H Random Glucose 198 H Calcium 9.8 Total Bilirubin 1.0 AST 56 ALT 26 Alkaline Phosphatase 78 Total Protein 9.2 H Albumin 5.5 H Globulin 3.8 Albumin/Globulin Ratio 1.4 Venous Blood Potassium Urine Color Urine Clarity Urine pH Ur Specific [place] Urine Protein Urine Glucose (UA) Urine Ketones Urine Blood Urine Nitrate Urine Bilirubin Urine Urobilinogen Ur Leukocyte Esterase Urine WBC (Auto) Urine RBC (Auto) Ur Squamous Epith Cells Urine Bacteria Hyaline Casts Urine Opiates Screen Urine Methadone Screen Ur Barbiturates Screen Ur Phencyclidine Scrn Ur Amphetamines Screen U Benzodiazepines Scrn U Oth Cocaine Metabols U Cannabinoids Screen Alcohol, Quantitative < 10 07/15/18 07/15/18 07/15/18 07:34 07:43 07:43 WBC RBC Hgb Hct MCV MCH MCHC RDW Plt Count MPV Neut % (Auto) Lymph % (Auto) [place] % (Auto) Eos % (Auto) Baso % (Auto) Neut # (Auto) Lymph # (Auto) [place] # (Auto) Eos # (Auto) Baso # (Auto) pO2 63 H VBG pH 7.42 VBG pCO2 35 L VBG HCO3 23.8 VBG Total CO2 23.8 VBG O2 Sat (Calc) 94.1 H VBG Base Excess -1.3 L VBG Potassium 3.8 Glucose 202 H Lactate 6.1 H* Crit Value Called To Er nurse Crit Value Called By Rt Crit Value Read Back Y Blood Gas Notified Time 738 Sodium 134.0 Potassium Chloride 97.0 L Carbon Dioxide Anion Gap BUN Creatinine Est GFR ( Amer) Est GFR (Non-Af Amer) POC Glucose (mg/dL) Random Glucose Calcium Total Bilirubin AST ALT Alkaline Phosphatase Total Protein Albumin Globulin Albumin/Globulin Ratio Venous Blood Potassium 3.8 Urine Color Yellow Urine Clarity Clear Urine pH 7.0 Ur Specific [place] 1.018 Urine Protein 3+ H Urine Glucose (UA) 3+ H Urine Ketones 1+ H Urine Blood 1+ H Urine Nitrate Negative Urine Bilirubin Negative Urine Urobilinogen Normal Ur Leukocyte Esterase Neg Urine WBC (Auto) < 1 Urine RBC (Auto) < 1 Ur Squamous Epith Cells < 1 Urine Bacteria Rare Hyaline Casts 3-5 H Urine Opiates Screen Negative Urine Methadone Screen Negative Ur Barbiturates Screen Negative Ur Phencyclidine Scrn Negative Ur Amphetamines Screen Negative U Benzodiazepines Scrn Negative U Oth Cocaine Metabols Negative U Cannabinoids Screen Negative Alcohol, Quantitative 07/15/18 10:20 WBC RBC Hgb Hct MCV MCH MCHC RDW Plt Count MPV Neut % (Auto) Lymph % (Auto) [place] % (Auto) Eos % (Auto) Baso % (Auto) Neut # (Auto) Lymph # (Auto) [place] # (Auto) Eos # (Auto) Baso # (Auto) pO2 29 L VBG pH 7.38 VBG pCO2 50 VBG HCO3 26.4 VBG Total CO2 31.1 H VBG O2 Sat (Calc) 56.9 VBG Base Excess 3.4 H VBG Potassium 3.9 Glucose 122 H Lactate 2.2 H Crit Value Called To Crit Value Called By Crit Value Read Back Blood Gas Notified Time Sodium 135.0 Potassium Chloride 100.0 Carbon Dioxide Anion Gap BUN Creatinine Est GFR ( Amer) Est GFR (Non-Af Amer) POC Glucose (mg/dL) Random Glucose Calcium Total Bilirubin AST ALT Alkaline Phosphatase Total Protein Albumin Globulin Albumin/Globulin Ratio Venous Blood Potassium 3.9 Urine Color Urine Clarity Urine pH Ur Specific [place] Urine Protein Urine Glucose (UA) Urine Ketones Urine Blood Urine Nitrate Urine Bilirubin Urine Urobilinogen Ur Leukocyte Esterase Urine WBC (Auto) Urine RBC (Auto) Ur Squamous Epith Cells Urine Bacteria Hyaline Casts Urine Opiates Screen Urine Methadone Screen Ur Barbiturates Screen Ur Phencyclidine Scrn Ur Amphetamines Screen U Benzodiazepines Scrn U Oth Cocaine Metabols U Cannabinoids Screen Alcohol, Quantitative
[2018-07-15] MEDS ORDERED: Pneumococcal 23-Valent Vaccine IM ONE (16:59)
[2018-07-15 17:19] LABS: CK-MB 6.17 ng/mL (0.0-3.38); TROPONIN I 0.045 ng/mL (0.00-0.120)
--- NOTE | 2018-07-16 02:21 | CON ---
DATE: 07/15/2018 CARDIOLOGY CONSULT REASON FOR CONSULTATION: Rapid atrial fibrillation and uncontrolled hypertension. HISTORY OF PRESENT ILLNESS: The patient is 62-year-old male, who has history of EtOH abuse, presented because of weakness and inability to stand up. The patient denies any speech difficulty or arm weakness. Denies any syncope. The patient was found to be on rapid atrial fibrillation. The patient says that his last alcohol drink was 2 days ago. The patient's most recent alcohol intoxication was last month, where his alcohol level was 117. The patient presented in 07/2017 with alcohol intoxication, his level was 386. SOCIAL HISTORY: The patient is EtOH abuser. He has quit smoking. MEDICATIONS: Aspirin 325 mg once a day, Cozaar 100 mg daily, Librium 25 mg every 4 hours p.r.n., Lovenox 90 mg subcutaneous daily. PHYSICAL EXAMINATION: GENERAL: The patient is a middle-aged male who does not appears to be in acute distress. VITAL SIGNS: Blood pressure 156/96, heart rate 91, respirations 17, and temperature 98.2. HEENT: Normocephalic. CHEST: Clear. HEART: S1 and S2 regular. ABDOMEN: Soft. EXTREMITIES: No edema. No calf tenderness. LABORATORY DATA: Hemoglobin and hematocrit 15.5 and 44.5. White count and platelet count are within normal limits. Urine drug screen is negative. Alcohol level is less than 10. SMA-7: Sodium 137, potassium 4, chloride 94, CO2 of 20, glucose 198, BUN 17, and creatinine 0.9. Head CT scan without contrast, no interval hemorrhage or mass effect, cerebral atrophy and chronic microvascular ischemic changes. EKG revealed atrial flutter with variable AV conduction with nonspecific ST segment changes. The most recent EKG last month revealed sinus rhythm with left atrial enlargement. ASSESSMENT: 1. New onset atrial flutter. 2. Consider alcohol withdrawal. 3. Uncontrolled hypertension. 4. Rule out vertebrobasilar insufficiency. RECOMMENDATIONS: Continue aspirin 325 mg once a day, Cozaar 100 mg daily, Lovenox 90 mg subcutaneous daily. The patient did receive 0.2 mg of clonidine earlier. Obtain D-dimer. Obtain x-ray of the cervical as well as thoracolumbar spine. Consider neurology evaluation and obtain an echocardiogram as well as thyroid profile. Peter Monreal MD [facility] # [id number]
--- NOTE | 2018-07-16 09:08 | CT ---
Date of service: 07/15/2018 PROCEDURE: CT Chest with contrast (Pulmonary Angiogram) HISTORY: r/o PE COMPARISON: Not available TECHNIQUE: Axial computed tomography images were obtained of the chest in the pulmonary arterial phase of enhancement. Coronal and sagittal reformatted images were created and reviewed. Intravenous contrast dose: 100 mL Visipaque 320 Radiation dose: Total exam DLP = 461.99 mGy-cm. This CT exam was performed using one or more of the following dose reduction techniques: Automated exposure control, adjustment of the mA and/or kV according to patient size, and/or use of iterative reconstruction technique. FINDINGS: PULMONARY ARTERIES: Unremarkable. No pulmonary embolism. AORTA: No acute findings. No thoracic aortic aneurysm. LUNGS: Unremarkable. No nodule, mass or pulmonary consolidation. PLEURAL SPACES: Unremarkable. No effusion or pneumothorax. HEART: Unremarkable. No cardiomegaly. No significant pericardial effusion. LYMPH NODES: No lymphadenopathy. BONES, CHEST WALL: Healing fractures of the right 9th and 10th ribs posterolaterally. Healed fractures left 10th and 7th ribs laterally. No acute fracture. OTHER FINDINGS: Very small hiatal hernia. IMPRESSION: No evidence of pulmonary embolism. Healing right rib fractures and healed old left rib fractures as described. No infiltrate/effusion. No additional abnormality. The preliminary findings for this examination were reported by [facility] at 9:02 p.m. on 07/15/2018. There is concurrence of this report with the preliminary findings.
[2018-07-16] MEDS: Enoxaparin 100 mg Syringe SC SCH (10:17)
[2018-07-16] MEDS: Thiamine 100 mg/ml Inj IV SCH (15:11)
[2018-07-16 17:34] LABS: CK-MB 2.46 ng/mL (0.0-3.38); TROPONIN I 0.02 ng/mL (0.00-0.120)
--- NOTE | 2018-07-16 18:15 | CARD ---
APPROVED REPORT Date of service: 07/16/2018 EXAM: Two-dimensional and M-mode echocardiogram with Doppler and color Doppler. Other Information Quality : GoodRhythm : INDICATION Atrial Fibrillation Murmur alcohol abuse RISK FACTORS Hypertension 2D DIMENSIONS IVSd1.4 (0.7-1.1cm)LVDd3.5 (3.9-5.9cm) PWd1.3 (0.7-1.1cm)LA Kyqvnf14 (18-58mL) LVDs2.3 (2.5-4.0cm)FS (%) 35.5 % LVEF (%)66.0 (>50%)LVEF (Cavazos's)50.24 % M-Mode DIMENSIONS Left Atrium (MM)3.59 (2.5-4.0cm)IVSd1.08 (0.7-1.1cm) Aortic Root4.17 (2.2-3.7cm)LVDd4.38 (4.0-5.6cm) Aortic Cusp Exc.2.86 (1.5-2.0cm)PWd0.98 (0.7-1.1cm) FS (%) 38 %LVDs2.73 (2.0-3.8cm) LVEF (%)68 (>50%) Mitral Valve MV E Tfzssknd01.5cm/sMV A Rknxzcsd66.0cm/sE/A ratio0.6 TDI Lateral E' Peak V8.93cm/sMedial E' Peak V6.35cm/sE/Lateral E'5.9 E/Medial E'8.3 LEFT VENTRICLE The left ventricle is normal size. There is normal left ventricular wall thickness. Left ventricle systolic function is normal. The Ejection Fraction is 60-65%.65-70%. There is normal LV segmental wall motion. Tissue Doppler imaging reveals abnormal left ventricular diastolic dysfunction. RIGHT VENTRICLE The right ventricle is normal size. There is normal right ventricular wall thickness. The right ventricular systolic function is normal. ATRIA The left atrium size is normal. The right atrium size is normal. The interatrial septum is intact with no evidence for an atrial septal defect. AORTIC VALVE The aortic valve is normal in structure. No aortic regurgitation is present. There is no aortic valvular stenosis. MITRAL VALVE The mitral valve is normal in structure. There is no evidence of mitral valve prolapse. There is no mitral valve stenosis. Mitral regurgitation is mild. TRICUSPID VALVE The tricuspid valve is normal in structure. There is no tricuspid valve regurgitation noted. There is no tricuspid valve prolapse or vegetation. PULMONIC VALVE The pulmonic valve is not well visualized. There is no pulmonic valvular regurgitation. GREAT VESSELS The aortic root is normal in size. PERICARDIAL EFFUSION There is no significant pericardial effusion. <Conclusion> Left ventricle systolic function is normal. The Ejection Fraction is 60-65%.65-70%. Diastolic dysfunction. No aortic regurgitation is present. Mitral regurgitation is mild. There is no tricuspid valve regurgitation noted. There is no pulmonic valvular regurgitation.
--- NOTE | 2018-07-16 18:55 | PN ---
DATE: 07/16/2018 SUBJECTIVE: The patient continues on currently one-to-one watch. He has sinus tachycardia on the monitor. PHYSICAL EXAMINATION: VITAL SIGNS: Blood pressure 139/78, heart rate 100, temperature 98.9, respiration 20. HEENT: Normocephalic. CHEST: Minimal rhonchi. HEART: S1 and S2, regular. EXTREMITIES: No edema. LABORATORY DATA: Today's blood sugar is 88, total , troponin 0.045, 152. Chest CT angio, no evidence of pulmonary embolism, healing right rib fractures and healed old rib fractures. No infiltrate seen. Dorsal spine x-ray is unremarkable. Lumbosacral spine x-ray unremarkable. Cervical spine x-ray, degenerative disc disease with C5-C6 and C6-C7. ASSESSMENT: 1. Paroxysmal atrial flutter. 2. Alcohol withdrawal. 3. Altered mental status. RECOMMENDATIONS: Change aspirin to 81 mg once a day. Continue Cozaar 50 mg once a day, Librium 25 mg four times a day, Lovenox 90 mg subcutaneously daily. Start thiamine 100 mg intravenously daily. I will review the echocardiography study. Consider repeating head CT scan without contrast. Peter Monreal MD
--- NOTE | 2018-07-16 20:51 | CP.PCM.PN ---
Subjective - Date & Time of Evaluation Date of Evaluation: 07/16/18 Time of Evaluation: 12:45 - Subjective Subjective: clinically same Objective - Vital Signs/Intake and Output Vital Signs (last 24 hours): Temp Pulse Resp BP Pulse Ox 98.3 F 95 H 20 144/88 98 07/16/18 15:00 07/16/18 16:00 07/16/18 15:00 07/16/18 15:00 07/16/18 15:00 - Medications Medications: Current Medications Aspirin (Aspirin) 325 mg PO DAILY [facility] Last Admin: 07/16/18 10:17 Dose: 325 mg Chlordiazepoxide (Librium) 25 mg PO TID [facility]; Taper Stop: 07/19/18 11:59 Last Admin: 07/16/18 17:45 Dose: 25 mg Chlordiazepoxide (Librium) 25 mg PO Q4H PRN PRN Reason: Alcohol Withdrawal Last Admin: 07/15/18 21:31 Dose: 25 mg Enoxaparin Sodium (Lovenox) 90 mg SC DAILY [facility] Last Admin: 07/16/18 10:17 Dose: 80 mg Influenza Virus Vaccine (Fluzone Quad [id number]) 60 mcg IM .ONCE ONE Stop: 07/17/18 10:01 Losartan Potassium (Cozaar) 50 mg PO DAILY [facility] Last Admin: 07/16/18 10:17 Dose: 50 mg Phenol/Menthol (Phenaseptic 1.4% Throat [place]) 1 ml MT Q2H PRN PRN Reason: Sore Throat Pneumococcal Polyvalent Vaccine (Pneumovax 23 Vaccine) 0.5 ml IM .ONCE ONE Stop: 07/17/18 10:01 Thiamine HCl (Vitamin B1 Inj) 100 mg IV DAILY [facility] Last Admin: 07/16/18 15:11 Dose: 100 mg - Labs Labs: 07/15/18 07:04 07/15/18 07:04
[2018-07-17] MEDS ORDERED: Influenza Vaccine 60 MCG/0.5 ML SYR (3 yr & up) IM ONE (10:00)
[2018-07-17] MEDS ORDERED: Pneumococcal 23-Valent Vaccine IM ONE (10:00)
[2018-07-17] MEDS: Enoxaparin 100 mg Syringe SC SCH (10:55)
[2018-07-17] MEDS: Thiamine 100 mg/ml Inj IV SCH (10:55)
[2018-07-17] MEDS: hydrALAZINE 12.5 mg Tab PO SCH ×3 (11:48→18:07)
--- NOTE | 2018-07-17 17:46 | CP.PCM.PN ---
Subjective - Date & Time of Evaluation Date of Evaluation: 07/17/18 Time of Evaluation: 11:45 - Subjective Subjective: clinically same Objective - Vital Signs/Intake and Output Vital Signs (last 24 hours): Temp Pulse Resp BP Pulse Ox 98.5 F 97 H 20 124/85 97 07/17/18 15:36 07/17/18 16:00 07/17/18 15:36 07/17/18 15:36 07/17/18 15:36 - Medications Medications: Current Medications Aspirin (Aspirin Chewable) 81 mg PO DAILY [facility] Chlordiazepoxide (Librium) 25 mg PO BID [facility]; Taper Stop: 07/19/18 11:59 Last Admin: 07/17/18 11:00 Dose: 25 mg Chlordiazepoxide (Librium) 25 mg PO Q4H PRN PRN Reason: Alcohol Withdrawal Last Admin: 07/15/18 21:31 Dose: 25 mg Enoxaparin Sodium (Lovenox) 90 mg SC DAILY [facility] Last Admin: 07/17/18 10:55 Dose: 90 mg Hydralazine HCl (Apresoline) 12.5 mg PO TID [facility] Last Admin: 07/17/18 14:50 Dose: 12.5 mg Ceftriaxone Sodium 1 gm/ (Sodium Chloride) 100 mls @ 100 mls/hr IVPB DAILY [facility] Last Admin: 07/17/18 10:55 Dose: 100 mls/hr Phenol/Menthol (Phenaseptic 1.4% Throat [place]) 1 ml MT Q2H PRN PRN Reason: Sore Throat Thiamine HCl (Vitamin B1 Inj) 100 mg IV DAILY [facility] Last Admin: 07/17/18 10:55 Dose: 100 mg - Labs Labs: 07/15/18 07:04 07/15/18 07:04
--- NOTE | 2018-07-17 17:47 | CP.PCM.CON ---
History of Present Illness - History of Present Illness History of Present Illness: presents with a possible alcoholic withdrawal seizure. his friend called 911 after finding the patient on the floor. Pt has stopped drinking about 2 days ago. Denies any suicidal or homicidal ideation. States he normally drinks every day. found on floor possible seizure tongue bite High lactate on admission Review of Systems - Review of Systems All systems: reviewed and no additional remarkable complaints except - Constitutional Constitutional: As Per HPI - EENT Eyes: absent: As Per HPI, Blind Spots, Blurred Vision, Change in Vision, Decreased Night Vision, Diplopia, Discharge, Dry Eye, Exophthalmos, Floaters, Irritation, Itchy Eyes, Loss of Peripheral Vision, Pain, Photophobia, Requires Corrective Lenses, Sees Flashes, Spots in Vision, Tunnel Vision, Other Visual Disturbances, Loss of Vision, Other Ears: absent: As Per HPI, Decreased Hearing, Ear Discharge, Ear Pain, Tinnitus, Abnormal Hearing, Disequilibrium, Dizziness, Other Nose/Mouth/Throat: As Per HPI - Cardiovascular Cardiovascular: absent: As Per HPI, Acrocyanosis, Chest Pain, Chest Pain at Rest, Chest Pain with Activity, Claudication, Diaphoresis, Dyspnea, Dyspnea on Exertion, Edema, Irregular Heart Rhythm, Pain Radiating to Arm/Neck/Jaw, Leg Edema, Leg Ulcers, Lightheadedness, Orthopnea, Palpitations, Paroxysmal N octurnal Dyspnea, Pedal Edema, Radiating Pain, Rapid Heart Rate, Slow Heart Rate, Syncope, Other - Respiratory Respiratory: absent: As Per HPI, Cough, Dyspnea, Hemoptysis, Dyspnea on Exertion, Wheezing, Snoring, Stridor, Pain on Inspiration, Chest Congestion, E xcessive Mucous Production, Change in Mucous Color, Pain with Coughing, Other - Gastrointestinal Gastrointestinal: absent: As Per HPI, Abdominal Pain, Belching, Bloating, Change in Bowel Habits, Change in Stool Character, Coffee Ground Emesis, Constipation, Cramping, Diarrhea, Dyspepsia, Dysphagia, Early Satiety, Excessive Flatus, Fecal Incontinence, Heartburn, Hematemesis, Hematochezia, Loose Stools, Melena, Nausea, Odynophagia, Temesmus, Vomiting, Other - Genitourinary Genitourinary: absent: As Per HPI, Change in Urinary Stream, Difficulty Urinating, Dysuria, Flank Pain, Hematuria, Pyuria, Nocturia, Urinary Incon tinence, Urinary Frequency, Urinary Hesitance, Urinary Urgency, Voiding Freq/Small Amts, Freq UTI, Hx Renal/Bladder Calculi, Hx /Renal Surgery, Bladder Distension, Other - Musculoskeletal Musculoskeletal: absent: As Per HPI, Abnormal Gait, Arthralgias, Atrophy, Back Pain, Deformity, Joint Swelling, Limited Range of Motion, Loss of Height, Muscle Cramps, Muscle Weakness, Myalgias, Neck Pain, Numbness, Radiating Pain into Limb, Stiffness, Tingling, Other - Integumentary Integumentary: absent: As Per HPI, Acne, Alopecia, Bleeding Lesions, Change in Hair, Change in Nails, Change in Pigmentation, Changing Lesions, Dry Skin, Erythema, Furuncle, Hirsutism, Lesions, New Lesions, Non-Healing Lesions, Photosensitivity, Pruritus, Rash, Skin Pain, Skin Ulcer, Sores, Striae, Swelling, Unusual Bruising, Wounds, Jaundice, Other - Neurological Neurological: As Per HPI - Psychiatric Psychiatric: As Per HPI - Endocrine Endocrine: absent: As Per HPI, Change in Body Appearance, Change in Libido, Cold Intolorance, Deepening of Voice, Excessive Sweating, Fatigue, Flushing, Heat Intolorance, Increase in Ring/Shoe/Hat Size, Palpitations, Polydipsia, Polyphagia, Polyuria, Other Past Patient History - Past Medical History & Family History Past Medical History?: Yes - Past Social History Smoking Status: Never Smoked - CARDIAC Hx Hypertension: Yes (no meds) Hx Pacemaker: No - PULMONARY Hx Respiratory Disorders: No Hx Tuberculosis: No - NEUROLOGICAL Hx Seizures: No - HEENT Hx HEENT Problems: No - RENAL Hx Chronic Kidney Disease: No - ENDOCRINE/METABOLIC Hx Endocrine Disorders: No - HEMATOLOGICAL/ONCOLOGICAL Hx Human Immunodeficiency Virus (HIV): No - INTEGUMENTARY Hx Dermatological Problems: No - MUSCULOSKELETAL/RHEUMATOLOGICAL Hx Falls: (pt denies fall history) - GASTROINTESTINAL Hx Gastrointestinal Disorders: No - GENITOURINARY/GYNECOLOGICAL Hx Sexually Transmitted Disorders: No - PSYCHIATRIC Hx Substance Use: Yes - SURGICAL HISTORY Hx Surgeries: Yes Hx Herniorrhaphy: Yes (Inguinal hernia) - ANESTHESIA Hx Anesthesia: Yes Hx Anesthesia Reactions: No Hx Malignant Hyperthermia: No Meds Allergies/Adverse Reactions: Allergies Allergy/AdvReac Type Severity Reaction Status Date / Time No Known Allergies Allergy Verified 07/15/18 06:55 - Medications Medications: Current Medications Aspirin (Aspirin Chewable) 81 mg PO DAILY [facility] Chlordiazepoxide (Librium) 25 mg PO BID [facility]; Taper Stop: 07/19/18 11:59 Last Admin: 07/17/18 11:00 Dose: 25 mg Chlordiazepoxide (Librium) 25 mg PO Q4H PRN PRN Reason: Alcohol Withdrawal Last Admin: 07/15/18 21:31 Dose: 25 mg Enoxaparin Sodium (Lovenox) 90 mg SC DAILY [facility] Last Admin: 07/17/18 10:55 Dose: 90 mg Hydralazine HCl (Apresoline) 12.5 mg PO TID [facility] Last Admin: 07/17/18 14:50 Dose: 12.5 mg Ceftriaxone Sodium 1 gm/ (Sodium Chloride) 100 mls @ 100 mls/hr IVPB DAILY [facility] Last Admin: 07/17/18 10:55 Dose: 100 mls/hr Phenol/Menthol (Phenaseptic 1.4% Throat [place]) 1 ml MT Q2H PRN PRN Reason: Sore Throat Thiamine HCl (Vitamin B1 Inj) 100 mg IV DAILY [facility] Last Admin: 07/17/18 10:55 Dose: 100 mg Physical Exam - Constitutional Appears: Non-toxic, No Acute Distress, Chronically Ill - Head Exam Head Exam: NORMOCEPHALIC - Eye Exam Eye Exam: absent: Scleral icterus - ENT Exam ENT Exam: Mucous Membranes Dry - Neck Exam Neck exam: Negative for: Lymphadenopathy - Respiratory Exam Respiratory Exam: Decreased Breath Sounds - Cardiovascular Exam Cardiovascular Exam: REGULAR RHYTHM - GI/Abdominal Exam GI & Abdominal Exam: Diminished Bowel Sounds, Soft. absent: Tenderness - Rectal Exam Rectal Exam: Deferred - Exam Exam: NORMAL INSPECTION - Extremities Exam Extremities exam: Negative for: pedal edema - Back Exam Back exam: absent: CVA tenderness (L), CVA tenderness (R) - Neurological Exam Neurological exam: Alert, CN II-XII Intact, Oriented x3, Reflexes Normal - Psychiatric Exam Psychiatric exam: Depressed Results - Vital Signs Recent Vital Signs: Last Vital Signs Temp 98.5 F 07/17/18 15:36 Pulse 97 H 07/17/18 16:00 Resp 20 07/17/18 15:36 BP 124/85 07/17/18 15:36 Pulse Ox 97 07/17/18 15:36 - Labs Result Diagrams: 07/15/18 07:04 07/15/18 07:04 Labs: Laboratory Results - last 24 hr 07/17/18 08:09 Lactic Acid 0.6 L Assessment & Plan (1) Lactic acidemia Status: Acute (2) Lactic acidosis Status: Acute (3) Lactic acidosis Status: Acute (4) Lactic acid acidosis Status: Acute (5) Alcohol abuse Status: Acute (6) Seizure Status: Acute (7) Alcohol use disorder, severe, dependence Status: Acute - Assessment and Plan (Free Text) Assessment: possible arrythmia hx HTN r/o ischemic heart disease etoh abuse lactic acidosis r/o seizures alcohol withdrawl tongue biting starte antibiotics after cultures consider oral surgery eval
[2018-07-17] MEDS ORDERED: Dexamethasone 4 mg/1 ml IV ONE ×2 (19:33→21:00)
--- NOTE | 2018-07-17 21:32 | PN ---
DATE: 07/17/2018 SUBJECTIVE: The patient is clearly oriented to place today. He is experiencing what appears to be a significant tongue biting with difficulty swallowing. He denies any chest pain. OBJECTIVE: VITAL SIGNS: Blood pressure 124/85, heart rate 100, temperature 98.5, and respiration 20. HEENT: Normocephalic. CHEST: Clear. HEART: S1 and S2 regular. EXTREMITIES: No edema. LABORATORY DATA: Today's lactic acid is 0.6. IMPRESSION: 1. Chest pain, myocardial infarction is ruled out. 2. Paroxysmal atrial flutter. 3. Rule out seizure activity. The patient has significant tongue biting. RECOMMENDATIONS: Continue IV thiamine 100 mg daily. Continue oral Librium. Reduce aspirin to 81 mg once a day. Continue IV Rocephin 1 g daily. Discontinue Cozaar. Consider neurology evaluation, seizure precautions and repeat head CT scan as well as obtain EEG. Peter Monreal MD
[2018-07-18 07:32] LABS: HEPATITIS B SURFACE AG Negative (NEGATIVE)
[2018-07-18 07:49] LABS: HEPATITIS C ANTIBODY NEGATIVE (NEGATIVE)
[2018-07-18] MEDS: Enoxaparin 100 mg Syringe SC SCH (10:45)
[2018-07-18 10:56] LABS: HEPATITIS A IGM NEGATIVE (NEGATIVE); HEPATITIS B CORE AB NEGATIVE (NEGATIVE)
[2018-07-18] MEDS: hydrALAZINE 12.5 mg Tab PO SCH ×3 (10:56→17:44)
[2018-07-18] MEDS: Phenol Topical 1.4% Throat Spray (180 ml) MT PRN ×2 (10:56→14:20)
[2018-07-18] MEDS: Thiamine 100 mg/ml Inj IV SCH (10:59)
--- NOTE | 2018-07-18 14:02 | CT ---
Date of service: 07/18/2018 PROCEDURE: CT HEAD WITHOUT CONTRAST. HISTORY: repeat for likely seizure (etoh related) COMPARISON: 07/15/2018. TECHNIQUE: Axial computed tomography images were obtained through the head/brain without intravenous contrast. Radiation dose: Total exam DLP = 1083.91 mGy-cm. This CT exam was performed using one or more of the following dose reduction techniques: Automated exposure control, adjustment of the mA and/or kV according to patient size, and/or use of iterative reconstruction technique. FINDINGS: HEMORRHAGE: No intracranial hemorrhage. BRAIN: There are mild chronic microangiopathic changes. There is no mass, mass effect or abnormal extra-axial fluid collection. There is no territorial infarction. The midline sagittal structures are normal. VENTRICLES: There is mild age-related global parenchymal volume loss and proportionate enlargement of the ventricles and cortical sulci. CALVARIUM: The skull base and calvarium are normal. PARANASAL SINUSES: Predominantly clear. MASTOID AIR CELLS: Predominantly clear. OTHER FINDINGS: None. IMPRESSION: No acute intracranial abnormality. Mild chronic microangiopathic changes and mild age-related global parenchymal volume loss.
--- NOTE | 2018-07-18 15:50 | CP.PCM.PN ---
Subjective - Date & Time of Evaluation Date of Evaluation: 07/18/18 Time of Evaluation: 08:00 - Subjective Subjective: no fever cultures neg thus far Objective - Vital Signs/Intake and Output Vital Signs (last 24 hours): Temp Pulse Resp BP Pulse Ox 98.4 F 79 20 146/94 H 97 07/18/18 04:00 07/18/18 12:13 07/18/18 04:00 07/17/18 23:05 07/18/18 04:00 Intake and Output: 07/18/18 07/18/18 06:59 18:59 Intake Total 320 500 Balance 320 500 - Medications Medications: Current Medications Aspirin (Aspirin Chewable) 81 mg PO DAILY [facility] Last Admin: 07/18/18 10:58 Dose: 81 mg Chlordiazepoxide (Librium) 25 mg PO DAILY [facility]; Taper Stop: 07/19/18 11:59 Last Admin: 07/18/18 10:59 Dose: 25 mg Chlordiazepoxide (Librium) 25 mg PO Q4H PRN PRN Reason: Alcohol Withdrawal Last Admin: 07/15/18 21:31 Dose: 25 mg Enoxaparin Sodium (Lovenox) 30 mg SC DAILY [facility] Hydralazine HCl (Apresoline) 12.5 mg PO TID [facility] Last Admin: 07/18/18 14:05 Dose: 12.5 mg Lidocaine HCl (Lidocaine 2% Viscous) 5 ml PO Q4 PRN PRN Reason: tounge pain Last Admin: 07/17/18 21:43 Dose: 5 ml Phenol/Menthol (Phenaseptic 1.4% Throat [place]) 1 ml MT Q2H PRN PRN Reason: Sore Throat Last Admin: 07/18/18 14:20 Dose: 1 spr Thiamine HCl (Vitamin B1 Inj) 100 mg IV DAILY [facility] Last Admin: 07/18/18 10:59 Dose: 100 mg - Labs Labs: 07/15/18 07:04 07/15/18 07:04 - Constitutional Appears: Non-toxic, Chronically Ill - Head Exam Head Exam: NORMOCEPHALIC - Eye Exam Eye Exam: absent: Scleral icterus - ENT Exam ENT Exam: Mucous Membranes Dry - Neck Exam Neck Exam: absent: Lymphadenopathy - Respiratory Exam Respiratory Exam: Decreased Breath Sounds - Cardiovascular Exam Cardiovascular Exam: REGULAR RHYTHM - GI/Abdominal Exam GI & Abdominal Exam: Distended, Soft - Rectal Exam Rectal Exam: Deferred - Exam Exam: NORMAL INSPECTION - Extremities Exam Extremities Exam: absent: Pedal Edema - Back Exam Back Exam: absent: CVA tenderness (L), CVA tenderness (R) - Neurological Exam Neurological Exam: Alert, Awake Assessment and Plan (1) Lactic acidemia Status: Acute (2) Lactic acidosis Status: Acute (3) Lactic acidosis Status: Acute (4) Lactic acid acidosis Status: Acute (5) Alcohol abuse Status: Acute (6) Seizure Status: Acute (7) Alcohol use disorder, severe, dependence Status: Acute - Assessment and Plan (Free Text) Assessment: cont rx as ordered
--- NOTE | 2018-07-18 18:36 | PN ---
DATE: 07/18/2018 SUBJECTIVE: The patient still complains of tongue pain. He has normal swallowing. PHYSICAL EXAMINATION: VITAL SIGNS: Blood pressure 146/94, heart rate 89, temperature 99.3, respirations 20. HEENT: Tongue bites noted on the right edge of the tongue. NECK: No JVD. CHEST: Clear. HEART: S1 and S2 regular. EXTREMITIES: No edema. ASSESSMENT: 1. Paroxysmal atrial flutter. 2. Alcohol withdrawal. 3. Consider seizure disorder. RECOMMENDATIONS: Case was discussed with the primary physician and with the [employer]. Repeat CT scan revealed no acute intracranial abnormality. Continue current aspirin, Librium and thiamine. Reduce Lovenox to 30 mg daily. The patient is not a suitable candidate for long-term anticoagulation because of his alcohol withdrawal and seizures. Peter Monreal MD
--- NOTE | 2018-07-18 19:25 | CON ---
DATE: 07/18/2018 REQUESTING PHYSICIAN: Dr. Yovnai Lee. REASON FOR CONSULTATION: Swollen tongue. HISTORY: This is a 62-year-old male, status post being found by his friends and being noted to have bitten his tongue, noted this three days ago. He has had tongue pain and swelling on the right side of his tongue since, it is [id number] in intensity and constant and no bleeding. Has had this pain and swelling for 3 days. The patient has moderate pain on that side, constant. No dysphagia, no nasal congestion, no hearing loss PAST MEDICAL HISTORY: As noted in the chart by me. MEDICATIONS: As noted in the chart by me. ALLERGIES: NOTED IN THE CHART BY ME. PHYSICAL EXAMINATION: HEAD: Atraumatic and normocephalic. FACE: Good facial movements bilaterally. CONSTITUTIONAL: Well fed, well nourished. COMMUNICATION: Communicates well and appropriately. EXTERNAL NOSE AND EARS: No masses, no lesions, no erythema, no edema. INTERNAL NOSE: Deviated septum. No masses, no lesions, no erythema, no edema. ORAL CAVITY AND OROPHARYNX: Mild edema of the right side of the tongue and no masses, no lesions. LIPS AND GUMS: No masses, no lesions, no erythema, no edema. NECK: Supple. THYROID: No thyromegaly. No goiter. LYMPH NODES: No lymphadenopathy of the neck. ASSESSMENT AND PLAN: Edema of the tongue secondary to trauma, edema is mild now. The patient has no shortness of breath. The patient is taking adequate p.o., can be discharged home from [facility] point. Kranthi Kim MD [facility]
--- NOTE | 2018-07-18 22:28 | CP.PCM.PN ---
Subjective - Date & Time of Evaluation Date of Evaluation: 07/18/18 Time of Evaluation: 10:15 - Subjective Subjective: clinically same Objective - Vital Signs/Intake and Output Vital Signs (last 24 hours): Temp Pulse Resp BP Pulse Ox 98.1 F 86 20 130/86 99 07/18/18 15:15 07/18/18 16:00 07/18/18 15:15 07/18/18 15:15 07/18/18 15:15 Intake and Output: 07/18/18 07/19/18 18:59 06:59 Intake Total 500 Balance 500 - Medications Medications: Current Medications Aspirin (Aspirin Chewable) 81 mg PO DAILY [facility] Last Admin: 07/18/18 10:58 Dose: 81 mg Chlordiazepoxide (Librium) 25 mg PO DAILY [facility]; Taper Stop: 07/19/18 11:59 Last Admin: 07/18/18 10:59 Dose: 25 mg Chlordiazepoxide (Librium) 25 mg PO Q4H PRN PRN Reason: Alcohol Withdrawal Last Admin: 07/15/18 21:31 Dose: 25 mg Enoxaparin Sodium (Lovenox) 30 mg SC DAILY [facility] Hydralazine HCl (Apresoline) 12.5 mg PO TID [facility] Last Admin: 07/18/18 17:44 Dose: 12.5 mg Lidocaine HCl (Lidocaine 2% Viscous) 5 ml PO Q4 PRN PRN Reason: tounge pain Last Admin: 07/17/18 21:43 Dose: 5 ml Phenol/Menthol (Phenaseptic 1.4% Throat [place]) 1 ml MT Q2H PRN PRN Reason: Sore Throat Last Admin: 07/18/18 14:20 Dose: 1 spr Thiamine HCl (Vitamin B1 Inj) 100 mg IV DAILY [facility] Last Admin: 07/18/18 10:59 Dose: 100 mg - Labs Labs: 07/15/18 07:04 07/15/18 07:04
--- NOTE | 2018-07-19 06:34 | CARD ---
APPROVED REPORT Date of service: 07/15/2018 EKG Measurement Heart [id number] <Conclusion> Atrial flutter with variable AV block Nonspecific ST abnormality Abnormal ECG
[2018-07-19 07:11] LABS: BASO % 0.7 % (0.0-2.0); EOS % 1.1 % (0.0-4.0); LYMPH # 0.5 K/uL (1.0-4.3); MEAN CELL VOLUME 96.9 fL (80.0-94.0); MEAN CORPUSCULAR HEMOGLOBIN 33.8 pg (27.0-31.0); MEAN CORPUSCULAR HGB CONC 34.9 g/dL (33.0-37.0); MEAN PLATELET VOLUME 8.4 fL (7.2-11.7); MONO # 0.4 K/uL (0.0-0.8); MONO % 9.2 % (0.0-10.0); NEUT # 3.1 K/uL (1.8-7.0); RBC 3.68 Mil/uL (4.40-5.90); RED CELL DISTRIBUTION WIDTH 12.7 % (11.5-14.5); WHITE BLOOD COUNT 4.1 K/uL (4.8-10.8)
[2018-07-19 07:28] LABS: HEMOGLOBIN 12.4 g/dL (12.0-18.0)
[2018-07-19 07:51] LABS: ALB/GLOB RATIO 1.2 (1.0-2.1); ALBUMIN 4.1 g/dL (3.5-5.0); ALT/SGPT 25 U/L (21-72); AST/SGOT 45 U/L (17-59); BLOOD UREA NITROGEN 20 mg/dL (9-20); GFR NON-AFRICAN AMERICAN > 60
[2018-07-19] MEDS: Enoxaparin 30 mg Syringe SC SCH (09:42)
[2018-07-19] MEDS: hydrALAZINE 12.5 mg Tab PO SCH ×3 (09:42→17:22)
[2018-07-19] MEDS: Thiamine 100 mg/ml Inj IV SCH (09:43)
--- NOTE | 2018-07-19 15:03 | CP.PCM.CON ---
History of Present Illness - History of Present Illness History of Present Illness: Neurology consult dictated. Please see report shortly for more details. In brief, patient is an alcoholic and had an alcohol withdrawal seizure. He is now well, and does not need to be on epilepsy medications. No eeg, no MRI is recommended at this time. Plan: 1. Alcohol rehab. Thank you for this consult. Dr. Marino Past Patient History - Past Medical History & Family History Past Medical History?: Yes - Past Social History Smoking Status: Never Smoked - CARDIAC Hx Hypertension: Yes (no meds) Hx Pacemaker: No - PULMONARY Hx Respiratory Disorders: No Hx Tuberculosis: No - NEUROLOGICAL Hx Seizures: No - HEENT Hx HEENT Problems: No - RENAL Hx Chronic Kidney Disease: No - ENDOCRINE/METABOLIC Hx Endocrine Disorders: No - HEMATOLOGICAL/ONCOLOGICAL Hx Human Immunodeficiency Virus (HIV): No - INTEGUMENTARY Hx Dermatological Problems: No - MUSCULOSKELETAL/RHEUMATOLOGICAL Hx Falls: (pt denies fall history) - GASTROINTESTINAL Hx Gastrointestinal Disorders: No - GENITOURINARY/GYNECOLOGICAL Hx Sexually Transmitted Disorders: No - PSYCHIATRIC Hx Substance Use: Yes - SURGICAL HISTORY Hx Surgeries: Yes Hx Herniorrhaphy: Yes (Inguinal hernia) - ANESTHESIA Hx Anesthesia: Yes Hx Anesthesia Reactions: No Hx Malignant Hyperthermia: No Meds Allergies/Adverse Reactions: Allergies Allergy/AdvReac Type Severity Reaction Status Date / Time No Known Allergies Allergy Verified 07/15/18 06:55 - Medications Medications: Current Medications Aspirin (Aspirin Chewable) 81 mg PO DAILY [facility] Last Admin: 07/19/18 09:42 Dose: 81 mg Chlordiazepoxide (Librium) 25 mg PO Q4H PRN PRN Reason: Alcohol Withdrawal Last Admin: 07/19/18 00:32 Dose: 25 mg Enoxaparin Sodium (Lovenox) 30 mg SC DAILY [facility] Last Admin: 07/19/18 09:42 Dose: 30 mg Hydralazine HCl (Apresoline) 12.5 mg PO TID [facility] Last Admin: 07/19/18 13:18 Dose: 12.5 mg Lidocaine HCl (Lidocaine 2% Viscous) 5 ml PO Q4 PRN PRN Reason: tounge pain Last Admin: 07/17/18 21:43 Dose: 5 ml Phenol/Menthol (Phenaseptic 1.4% Throat [place]) 1 ml MT Q2H PRN PRN Reason: Sore Throat Last Admin: 07/18/18 14:20 Dose: 1 spr Thiamine HCl (Vitamin B1 Inj) 100 mg IV DAILY [facility] Last Admin: 07/19/18 09:43 Dose: 100 mg Results - Vital Signs Recent Vital Signs: Last Vital Signs Temp 97.4 F L 07/19/18 07:30 Pulse 114 H 07/19/18 13:17 Resp 20 07/19/18 07:30 BP 146/93 H 07/19/18 13:17 Pulse Ox 98 07/19/18 07:30 - Labs Result Diagrams: 07/19/18 07:06 07/19/18 07:06 Labs: Laboratory Results - last 24 hr 07/19/18 07/19/18 07:06 07:06 WBC 4.1 L RBC 3.68 L Hgb 12.4 D Hct 35.6 MCV 96.9 H MCH 33.8 H MCHC 34.9 RDW 12.7 Plt Count 145 MPV 8.4 Neut % (Auto) 76.0 H Lymph % (Auto) 13.0 L [place] % (Auto) 9.2 Eos % (Auto) 1.1 Baso % (Auto) 0.7 Neut # (Auto) 3.1 Lymph # (Auto) 0.5 L [place] # (Auto) 0.4 Eos # (Auto) 0.0 Baso # (Auto) 0.0 Sodium 137 Potassium 3.7 Chloride 100 Carbon Dioxide 27 Anion Gap 14 BUN 20 Creatinine 0.8 Est GFR ( Amer) > 60 Est GFR (Non-Af Amer) > 60 Random Glucose 95 Calcium 10.0 Total Bilirubin 0.8 AST 45 ALT 25 Alkaline Phosphatase 43 Total Protein 7.4 Albumin 4.1 Globulin 3.3 Albumin/Globulin Ratio 1.2
--- NOTE | 2018-07-19 15:04 | CP.PCM.PN ---
Subjective - Date & Time of Evaluation Date of Evaluation: 07/19/18 Time of Evaluation: 10:00 - Subjective Subjective: clinically same Objective - Vital Signs/Intake and Output Vital Signs (last 24 hours): Temp Pulse Resp BP Pulse Ox 97.4 F L 114 H 20 146/93 H 98 07/19/18 07:30 07/19/18 13:17 07/19/18 07:30 07/19/18 13:17 07/19/18 07:30 Intake and Output: 07/19/18 07/19/18 06:59 18:59 Intake Total 500 Output Total 200 Balance -200 500 - Medications Medications: Current Medications Aspirin (Aspirin Chewable) 81 mg PO DAILY [facility] Last Admin: 07/19/18 09:42 Dose: 81 mg Chlordiazepoxide (Librium) 25 mg PO Q4H PRN PRN Reason: Alcohol Withdrawal Last Admin: 07/19/18 00:32 Dose: 25 mg Enoxaparin Sodium (Lovenox) 30 mg SC DAILY [facility] Last Admin: 07/19/18 09:42 Dose: 30 mg Hydralazine HCl (Apresoline) 12.5 mg PO TID [facility] Last Admin: 07/19/18 13:18 Dose: 12.5 mg Lidocaine HCl (Lidocaine 2% Viscous) 5 ml PO Q4 PRN PRN Reason: tounge pain Last Admin: 07/17/18 21:43 Dose: 5 ml Phenol/Menthol (Phenaseptic 1.4% Throat [place]) 1 ml MT Q2H PRN PRN Reason: Sore Throat Last Admin: 07/18/18 14:20 Dose: 1 spr Thiamine HCl (Vitamin B1 Inj) 100 mg IV DAILY [facility] Last Admin: 07/19/18 09:43 Dose: 100 mg - Labs Labs: 07/19/18 07:06 07/19/18 07:06
--- NOTE | 2018-07-19 20:50 | PN ---
DATE: 07/19/2018 SUBJECTIVE: The patient denies any chest pain or shortness of breath. OBJECTIVE: VITAL SIGNS: Blood pressure 137/80, heart rate 65, temperature 98.2, respirations 20. HEENT: Right lateral edge tongue bite consuelo. NECK: No JVD. CHEST: Clear. HEART: S1 and S2 regular. EXTREMITIES: No edema. LABORATORY DATA: Today's SMA-7 is entirely within normal limit. Liver enzymes are within normal limit. Hemoglobin and hematocrit are 12.4 and 35.6. The patient was evaluated by neurologist, Dr. Marino and the plan is alcohol rehab. ASSESSMENT: 1. Paroxysmal atrial flutter. 2. Alcohol withdrawal. 3. Hypertension. 4. Consider seizure disorder. RECOMMENDATIONS: Continue hydralazine 12.5 mg t.i.d., aspirin 81 mg once a day, Lovenox 30 mg subcutaneously once a day, and thiamine 100 mg intravenously daily. Peter Monreal MD
--- NOTE | 2018-07-19 22:24 | CON ---
DATE: 07/19/2018 NEUROLOGY CONSULTATION This consult was called by Dr. Yovani Lee. Thank you for this consult. HISTORY OF PRESENT ILLNESS: This is a 62-year-old male, right-handed who has a past medical history of significant alcohol abuse for over 15 years. He has had withdrawal seizures in the past. This time last Saturday, he was drinking and he had a loss of consciousness with witnessed generalized tonic-clonic seizure. There was no postictal state. He came to the emergency room, he was admitted, and he was treated for alcohol rehab. Consult was called today for alcohol withdrawal seizures. Since he has been in-house, he has not had any seizures. PAST MEDICAL HISTORY AND PAST SURGICAL HISTORY: Only significant for an appendectomy in the past. SOCIAL HISTORY: The patient is unemployed. He does not smoke. ALLERGIES: THERE ARE NO KNOWN DRUG ALLERGIES. PHYSICAL EXAMINATION: NEUROLOGIC: He is alert and oriented x3. Cranial nerves II through XII are normal. Pupils are equal, round, and reactive to light. Speech is coherent. He can name and repeat. Motor tone and strength is normal. Sensory exam is normal, intact to fine touch, pin, position, and vibration sense. Cerebellar: The patient has slightly wide-based gait and has a bilateral hand tremor, which is not asterixis but is very fine in nature. LABORATORY DATA: As follows: White count 12.1, hemoglobin 12.4, hematocrit 37.6, and MCHC 34.9, platelets 145, neutrophils 26, lymphs 13. Sodium 137, potassium 3.7, chloride 100, carbon dioxide 27, GFR is over 60. is 0.6. AST is 45 and ALT is 25 on exam today. TSH is 2.[address] of the head was done which only showed bilateral frontal atrophy. No subarachnoid, subdural, or fractures noted. IMPRESSION: This is a 62-year-old male with alcohol withdrawal seizures. PLAN: 1. At this point, there is no plan to start antiplatelet medications. He seems to be tolerating withdrawal quite well. 2. There is no need for an MRI of the brain. 3. This patient needs to go to chronic rehab to prevent further injuries from his generalized tonic-clonic seizures. I do believe that these seizures are secondary to alcohol withdrawal. Thank you for this consult. Jade Marino MD [facility] # [id number]
[2018-07-19] MEDS: Phenol Topical 1.4% Throat Spray (180 ml) MT PRN (23:56)
[2018-07-20] MEDS: Thiamine 100 mg/ml Inj IV SCH (10:11)
[2018-07-20] MEDS: Enoxaparin 30 mg Syringe SC SCH (10:14)
[2018-07-20] MEDS: hydrALAZINE 12.5 mg Tab PO SCH ×3 (10:14→17:55)
[2018-07-20] MEDS: Phenol Topical 1.4% Throat Spray (180 ml) MT PRN (13:47)
--- NOTE | 2018-07-20 15:14 | CP.PCM.PN ---
Subjective - Date & Time of Evaluation Date of Evaluation: 07/20/18 Time of Evaluation: 09:00 - Subjective Subjective: afeb nad Objective - Vital Signs/Intake and Output Vital Signs (last 24 hours): Temp Pulse Resp BP Pulse Ox 98.4 F 78 20 155/96 H 97 07/20/18 07:00 07/20/18 11:46 07/20/18 07:00 07/20/18 07:00 07/20/18 07:00 Intake and Output: 07/20/18 07/20/18 06:59 18:59 Intake Total 360 Output Total 950 Balance -590 - Medications Medications: Current Medications Aspirin (Aspirin Chewable) 81 mg PO DAILY [facility] Last Admin: 07/20/18 10:14 Dose: 81 mg Chlordiazepoxide (Librium) 25 mg PO Q4H PRN PRN Reason: Alcohol Withdrawal Last Admin: 07/19/18 00:32 Dose: 25 mg Enoxaparin Sodium (Lovenox) 30 mg SC DAILY [facility] Last Admin: 07/20/18 10:14 Dose: 30 mg Hydralazine HCl (Apresoline) 12.5 mg PO TID [facility] Last Admin: 07/20/18 13:46 Dose: 12.5 mg Lidocaine HCl (Lidocaine 2% Viscous) 5 ml PO Q4 PRN PRN Reason: tounge pain Last Admin: 07/19/18 23:58 Dose: 5 ml Phenol/Menthol (Phenaseptic 1.4% Throat [place]) 1 ml MT Q2H PRN PRN Reason: Sore Throat Last Admin: 07/20/18 13:47 Dose: 1 spr Thiamine HCl (Vitamin B1 Inj) 100 mg IV DAILY [facility] Last Admin: 07/20/18 10:11 Dose: 100 mg - Labs Labs: 07/19/18 07:06 07/19/18 07:06 - Constitutional Appears: Non-toxic, Chronically Ill - Head Exam Head Exam: NORMOCEPHALIC - Eye Exam Eye Exam: PERRL - ENT Exam ENT Exam: Mucous Membranes Dry - Neck Exam Neck Exam: absent: Lymphadenopathy - Respiratory Exam Respiratory Exam: Decreased Breath Sounds Assessment and Plan (1) Lactic acidemia Status: Acute (2) Lactic acidosis Status: Acute (3) Lactic acidosis Status: Acute (4) Lactic acid acidosis Status: Acute (5) Alcohol abuse Status: Acute (6) Seizure Status: Acute (7) Alcohol use disorder, severe, dependence Status: Acute
--- NOTE | 2018-07-20 18:50 | CP.PCM.PN ---
Subjective - Date & Time of Evaluation Date of Evaluation: 07/20/18 Time of Evaluation: 10:45 - Subjective Subjective: clinically same Objective - Vital Signs/Intake and Output Vital Signs (last 24 hours): Temp Pulse Resp BP Pulse Ox 98.2 F 83 20 138/82 96 07/20/18 14:00 07/20/18 14:00 07/20/18 14:00 07/20/18 14:00 07/20/18 14:00 Intake and Output: 07/20/18 07/20/18 06:59 18:59 Intake Total 360 450 Output Total 950 Balance -590 450 - Medications Medications: Current Medications Aspirin (Aspirin Chewable) 81 mg PO DAILY [facility] Last Admin: 07/20/18 10:14 Dose: 81 mg Chlordiazepoxide (Librium) 25 mg PO Q4H PRN PRN Reason: Alcohol Withdrawal Last Admin: 07/19/18 00:32 Dose: 25 mg Enoxaparin Sodium (Lovenox) 30 mg SC DAILY [facility] Last Admin: 07/20/18 10:14 Dose: 30 mg Hydralazine HCl (Apresoline) 12.5 mg PO TID [facility] Last Admin: 07/20/18 17:55 Dose: 12.5 mg Lidocaine HCl (Lidocaine 2% Viscous) 5 ml PO Q4 PRN PRN Reason: tounge pain Last Admin: 07/19/18 23:58 Dose: 5 ml Phenol/Menthol (Phenaseptic 1.4% Throat [place]) 1 ml MT Q2H PRN PRN Reason: Sore Throat Last Admin: 07/20/18 13:47 Dose: 1 spr Thiamine HCl (Vitamin B1 Inj) 100 mg IV DAILY [facility] Last Admin: 07/20/18 10:11 Dose: 100 mg - Labs Labs: 07/19/18 07:06 07/19/18 07:06 - Constitutional Appears: Well - Head Exam Head Exam: ATRAUMATIC, NORMAL INSPECTION, NORMOCEPHALIC - Eye Exam Eye Exam: EOMI, Normal appearance, PERRL Pupil Exam: NORMAL ACCOMODATION, PERRL - ENT Exam ENT Exam: Mucous Membranes Moist, Normal Exam - Neck Exam Neck Exam: Full ROM, Normal Inspection. absent: Lymphadenopathy - Respiratory Exam Respiratory Exam: Decreased Breath Sounds - Cardiovascular Exam Cardiovascular Exam: REGULAR RHYTHM, +S1, +S2 - GI/Abdominal Exam GI & Abdominal Exam: Soft, Diminished Bowel Sounds - Rectal Exam Rectal Exam: Deferred
--- NOTE | 2018-07-20 19:52 | PN ---
DATE: 07/20/2018 SUBJECTIVE: The patient denied any dizziness or palpitation. PHYSICAL EXAMINATION: VITAL SIGNS: Blood pressure 155/96, heat rate 73, temperature 98.4 and respiration 20. HEENT: Bite consuelo in the right angle of the tongue. CHEST: Clear. Heart: S1, S2 regular. ASSESSMENT: 1. Paroxysmal atrial flutter. 2. Alcohol withdrawal. 3. Consider seizure activity. 4. Hypertension. RECOMMENDATIONS: Continue current hydralazine, aspirin, Librium and IV thiamine as well as subcutaneous Lovenox. Peter Monreal MD
[2018-07-21 08:36] VITALS: PULSE 77
[2018-07-21 08:51] VITALS: BP 162/105; RESP 18; TEMP 98.7; O2SAT 98
[2018-07-21] MEDS: Thiamine 100 mg/ml Inj IV SCH (10:14)
[2018-07-21] MEDS: Enoxaparin 30 mg Syringe SC SCH (10:14)
[2018-07-21] MEDS: hydrALAZINE 12.5 mg Tab PO SCH (10:15)
--- NOTE | 2018-07-21 10:27 | CP.PCM.PN ---
Subjective - Date & Time of Evaluation Date of Evaluation: 07/21/18 Time of Evaluation: 10:27 - Subjective Subjective: PT CLEARED FOR D/C HOME TODAY PER DR. MOSHER. PT CLEARED BY [facility] FOR D/C. ALSO CLEARED BY ENT LAST WEEK. RX SENT TO PT'S PHARMACY FOR HYDRALAZINE AND ASA. LOSARTAN D/C'D PER DR. LLAMAS'S RECOMMENDATIONS. PT TO SEE DR. MOSHER IN THE OFFICE ON SATURDAY AT 1400. SEE BELOW FOR FURTHER D/C INSTRUCTIONS. D/C PLAN AND RX DISCUSSED WITH THE PT AND H VERBALIZES UNDERSTANDING. NO FURTHER ORDERS. -FOLLOW UP WITH DR. Stefani MOSHER IN THE OFFICE ON SATURDAY (07/23/18) AT 2:00 PM. -FOLLOW UP WITH DR. LLAMAS OR YOUR COVERING AND LINING SUPERVISOR IN THE OFFICE WITHIN 10-14 DAYS--CALL FOR APPOINTMENT. -CONTINUE HOME MEDICATIONS USUAL. -STOP TAKING LOSARTAN FOR YOUR BLOOD PRESSURE AND HEART. -INSTEAD, DR. LLAMAS HAS RECOMMENDED THAT YOU CONTINUE: 1) HYDRALAZINE 12.5 MG---TAKE 1 TABLET BY MOUTH THREE TIMES A DAY (MORNING, AFTERNOON, AND EVENING). 2) BABY ASPIRIN 81 MG---TAKE 1 TABLET BY MOUTH ONCE A DAY. -THE PRESCRIPTIONS FOR HYDRALAZINE AND ASPIRIN HAVR BEEN SENT TO YOUR PHARMACY -FEEL FREE TO MAKE AN APPOINTMENT WITH THE [facility] OFFICE AT [address] [place] [address] FOR ALCOHOL DETOX---[phone]. -FOR FURTHER CONCERNS OR QUESTIONS, CONTACT DR. Stefani MOSHER'S OFFICE. Objective - Vital Signs/Intake and Output Vital Signs (last 24 hours): Temp Pulse Resp BP Pulse Ox 98.7 F 77 18 162/105 H 98 07/21/18 07:00 07/21/18 07:50 07/21/18 07:00 07/21/18 07:00 07/21/18 07:00 Intake and Output: 07/21/18 07/21/18 06:59 18:59 Intake Total 120 Output Total 575 Balance -455 - Medications Medications: Current Medications Aspirin (Aspirin Chewable) 81 mg PO DAILY [facility] Last Admin: 07/21/18 10:15 Dose: 81 mg Chlordiazepoxide (Librium) 25 mg PO Q4H PRN PRN Reason: Alcohol Withdrawal Last Admin: 07/19/18 00:32 Dose: 25 mg Enoxaparin Sodium (Lovenox) 30 mg SC DAILY [facility] Last Admin: 07/21/18 10:14 Dose: 30 mg Hydralazine HCl (Apresoline) 12.5 mg PO TID [facility] Last Admin: 07/21/18 10:15 Dose: 12.5 mg Lidocaine HCl (Lidocaine 2% Viscous) 5 ml PO Q4 PRN PRN Reason: tounge pain Last Admin: 07/19/18 23:58 Dose: 5 ml Phenol/Menthol (Phenaseptic 1.4% Throat [place]) 1 ml MT Q2H PRN PRN Reason: Sore Throat Last Admin: 07/20/18 13:47 Dose: 1 spr Thiamine HCl (Vitamin B1 Inj) 100 mg IV DAILY [facility] Last Admin: 07/21/18 10:14 Dose: 100 mg - Labs Labs: 07/19/18 07:06 07/19/18 07:06
== END 2018-07-21 11:57 | disposition home or self-care (01) | DRG 138 ==
LOC: C.ER 06:40 → C.9E 08:50 → C.6T 13:50
PROVIDERS: ADMIT Internal Medicine Nephrology; ATTEND Internal Medicine Nephrology
DX: I48.92 Unspecified atrial flutter (principal); E87.2 Acidosis; F10.230 Alcohol dependence with withdrawal, uncomplicated; Y90.0 Blood alcohol level of less than 20 mg/100 ml; I10 Essential (primary) hypertension; I48.91 Unspecified atrial fibrillation; K14.6 Glossodynia; G40.909 Epilepsy, unspecified, not intractable, without status epilepticus

== ENCOUNTER 2018-10-15 12:29 | Emergency (ER) | payer MEDICAID ==
[2018-10-15 12:29] VITALS: BMI 28.0
[2018-10-15 12:44] VITALS: RESP 20
--- NOTE | 2018-10-15 14:01 | C.PDOC ---
History Of Present Illness 62 year old male presents to the emergency department with complaints of right thigh pain for the last 2-3 weeks. Patient denies falls or injuries, swelling, redness, fever, and sensory changes. Patient states that he has an appointment with his PMD tomorrow. Time Seen by Provider: 10/15/18 13:03 Chief Complaint (Nursing): Lower Extremity Problem/Injury History Per: Patient History/Exam Limitations: no limitations Onset/Duration Of Symptoms: Other (2-3 weeks) Current Symptoms Are (Timing): Still Present Past Medical History Reviewed: Historical Data, Nursing Documentation, Vital Signs Vital Signs: Last Vital Signs Temp 98 F 10/15/18 12:40 Pulse 92 H 10/15/18 12:40 Resp 20 10/15/18 12:40 BP 116/88 10/15/18 12:40 Pulse Ox 98 10/15/18 12:40 - Medical History PMH: HTN (no meds) Denies: Diabetes, Hepatitis, HIV, Chronic Kidney Disease, Seizures, Sexually Transmitted Disease Surgical History: No Surg Hx Denies: Pacemaker - [facility] Procedures ALCOHOL DETOXIFICATION (04/18/13) DETOXIFICATION SERVICES FOR SUBSTANCE ABUSE TREATMENT (08/28/17) 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, PSYCHOEDUCATION (08/28/17) INDIV PSYCHOTHERAPY FOR SUBSTANCE ABUSE TREATMENT, SUPPORT (08/28/17) Family History: States: No Known Family Hx - Social History Hx Tobacco Use: No Hx Alcohol Use: Yes Hx Substance Use: Yes - Immunization History Hx Tetanus Toxoid Vaccination: No Hx Influenza Vaccination: No Hx Pneumococcal Vaccination: No Review Of Systems Constitutional: Negative for: Fever Musculoskeletal: Positive for: Leg Pain (right thigh) Skin: Negative for: Other (redness, swelling) Neurological: Negative for: Weakness, Numbness Physical Exam - Physical Exam Appears: Non-toxic, No Acute Distress, Other (bizarre affect) Skin: Warm, Dry, No Rash Head: Atraumatic, Normacephalic Eye(s): bilateral: Normal Inspection Neck: Normal, Supple Chest: Symmetrical, No Tenderness Cardiovascular: Rhythm Regular, No Murmur Respiratory: Normal Breath Sounds, No Rales, No Rhonchi, No Wheezing Extremity: Tenderness (mild tenderness to palpation around right lateral thigh), No Deformity, No Swelling, No Other (erythema, warmth, knee tenderness, hip tenderness) Neurological/Psych: Oriented x3, Normal Speech, Normal Cognition ED Course And Treatment O2 Sat by Pulse Oximetry: 98 (RA) Pulse Ox Interpretation: Normal - Other Rad XR Right Femur X-Ray: Viewed By Me, Read By Radiologist Interpretation: IMPRESSION: Unremarkable radiographs of the right femur. Progress Note: Plan: XR Right Femur. Patient instructed to f/u with his PMD. Disposition Counseled Patient/Family Regarding: Diagnosis, Need For Followup, Rx Given - Disposition Referrals: Da Lees MD [Staff Provider] - Ji Ashby MD [Staff Provider] - Disposition: HOME/ ROUTINE Disposition Time: 14:00 Condition: STABLE Additional Instructions: FOLLOW UP WITH YOUR DOCTOR TOMORROW SCHEDULED PAIN MEDICATION NEEDED IF SYMPTOMS PERSIST, FOLLOW UP WITH ORTHOPEDICS RETURN TO ER IF SYMPTOMS WORSEN Prescriptions: Naproxen 375 mg PO BID PRN #20 tablet PRN Reason: pain Instructions: Muscle and Bone Pain (DC) Forms: [employer] (Greenlandic) Print Language: NIGERIAN - POA Present On Arrival: None - Clinical Impression Clinical Impression: Right thigh pain - Scribe Statement The provider has reviewed the documentation as recorded by the Scribe (Forrest Barriga) Provider Attestation: All medical record entries made by the Scribe were at my direction and personally dictated by me. I have reviewed the chart and agree that the record accurately reflects my personal performance of the history, physical exam, medical decision making, and the department course for this patient. I have also personally directed, reviewed, and agree with the discharge instructions and disposition.
--- NOTE | 2018-10-15 14:02 | RAD ---
Date of service: 10/15/2018 PROCEDURE: Right Femur Radiographs. HISTORY: right thigh pain COMPARISON: None. TECHNIQUE: AP and Lateral Radiographs of the right femur. FINDINGS: FEMUR: Normal. No fracture. SOFT TISSUES: Normal. OTHER FINDINGS: None. IMPRESSION: Unremarkable radiographs of the right femur.
[2018-10-15 14:08] VITALS: BP 137/91; PULSE 89; TEMP 97.8
[2018-10-15 14:09] VITALS: O2SAT 98
== END 2018-10-15 13:55 | disposition home or self-care (01) ==
LOC: C.ER 12:29
DX: M79.651 Pain in right thigh (principal)